=== PATIENT | male | born 1960 | race African-American/Black ===

== ENCOUNTER 2017-05-07 15:31 | Inpatient (IN) | payer OTHER ==
[2017-05-07 20:42] VITALS: BMI 19.4
[2017-05-07] MEDS ORDERED: P-EPHED 60MG/TRIPROLIDI 2.5MG TABLET PO PRN (21:11)
[2017-05-07] MEDS ORDERED: ACETAMINOPHEN 325 MG TABLET (FP) PO PRN (21:11)
[2017-05-07] MEDS ORDERED: MAGNESIUM HYDROX 2400MG/30ML ORAL SUSPENSION 30 ML CUP PO PRN (21:11)
[2017-05-07] MEDS ORDERED: MENTHOL/PHENOL 1 EACH UD MM PRN (21:11)
[2017-05-07] MEDS ORDERED: diphenhydrAMINE HCL 50 MG CAPSULE PO PRN (21:11)
[2017-05-07] MEDS ORDERED: guaiFENesin/D-METHORPHAN HB 10 ML UNIT-DOSE CUPS PO PRN (21:11)
[2017-05-07] MEDS ORDERED: MAG HYDROX/AL HYDROX/SIMETH 30 ML UNIT-DOSE CUP PO PRN (21:11)
[2017-05-07] MEDS ORDERED: MAGNESIUM CITRATE 300 ML BOTTLE PO PRN (21:11)
[2017-05-07] MEDS ORDERED: diazePAM 5 MG TABLET PO PRN (21:11)
[2017-05-07] MEDS ORDERED: LOPERAMIDE HCL 2 MG CAPSULE PO PRN (21:11)
[2017-05-07] MEDS ORDERED: METHADONE HCL 10 MG TABLET (FOR DETOX USE ONLY) PO ONE ×2 (21:11→23:00)
--- NOTE | 2017-05-07 21:11 | HP ---
COWS - Scale Resting Pulse: 0= MD 80 or Below Sweatin= Chills/Flushing Restless Observation: 3= Extraneous Movement Pupil Size: 0= Normal to Room Light Bone or Joint Aches: 2= Severe Diffuse Aches Runny Nose/ Eye Tearin= Runny Nose/Eyes GI Upset > 30mins: 3= Vomiting/Diarrhea Tremor Observation: 2= Slight Tremor Visible Yawning Observation: 0= None Anxiety or Irritability: 2=Irritable/Anxious Goose Flesh Skin: 0=Smooth Skin COWS Score: 15 Admission ROS S - HPI Chief Complaint: withdrawal sx Allergies/Adverse Reactions: Allergies Allergy/AdvReac Type Severity Reaction Status Date / Time No Known Allergies Allergy Verified 05/07/17 20:47 History of Present Illness: 56 years old male with long history of heroin dependence denies medical issue has depression is admitted to detox Exam Limitations: No Limitations - Ebola screening Have you traveled outside of the country in the last 21 days: No Have you had contact with anyone from an Ebola affected area: No Have you been sick,other than usual withdrawal symptoms: No Do you have a fever: No - Review of Systems Constitutional: Loss of Appetite, Changes in sleep, Unintentional Wgt. Loss, Unexplained wgt Loss EENT: reports: No Symptoms Reported Respiratory: reports: No Symptoms reported Cardiac: reports: No Symptoms Reported GI: reports: Nausea, Poor Appetite, Poor Fluid Intake, Abdominal cramping : reports: No Symptoms Reported Musculoskeletal: reports: Back Pain, Joint Pain, Muscle Pain, Neck Pain Integumentary: reports: Bruising (right and left arms from [facility] er 05/06 discharged 05/07/17) Neuro: reports: Tremors Endocrine: reports: No Symptoms Reported Hematology: reports: No Symptoms Reported Psychiatric: reports: Judgement Intact, Orientated x3, Anxious, Depressed Other Systems: Reviewed and Negative Patient History - Patient Medical History Hx Anemia: No Hx Asthma: No Hx Chronic Obstructive Pulmonary Disease (COPD): No Hx Cancer: No Hx Cardiac Disorders: No Hx Congestive Heart Failure: No Hx Hypertension: No Hx Hypercholesterolemia: No Hx Pacemaker: No HX Cerebrovascular Accident: No Hx Seizures: No Hx Dementia: No Hx Diabetes: No Hx Gastrointestinal Disorders: No Hx Liver Disease: No Hx Genitourinary Disorders: No Hx Sexually Transmitted Disorders: No Hx Renal Disease (ESRD): No Hx Thyroid Disease: No Hx Human Immunodeficiency Virus (HIV): No Hx Hepatitis C: No Hx Depression: Yes Hx Suicide Attempt: No Hx Bipolar Disorder: No Hx Schizophrenia: No - Patient Surgical History Past Surgical History: No - PPD History Previous Implant?: Yes Documented Results: Negative w/o proof Implanted On Prior [facility] Admission?: No PPD to be Administered?: Yes - Smoking Cessation Smoking history: Never smoked Have you smoked in the past 12 months: No Hx Chewing Tobacco Use: No Initiated information on smoking cessation: No - Substance & Tx. History Hx Alcohol Use: No Hx Substance Use: Yes Substance Use Type: Heroin Hx Substance Use Treatment: Yes (2016) - Substances Abused Heroin Route: Inhalation Frequency: Daily Amount used: 8 bags Age of first use: 13 Date of Last Use: 05/04/17 Admission Physical Exam BHS - Vital Signs Vital Signs: Vital Signs - 24 hr 05/07/17 20:40 Temperature 98.5 F Pulse Rate 60 Respiratory 18 Rate Blood Pressure 150/80 - Physical General Appearance: Yes: Appropriately Dressed, Moderate Distress, Thin, Tremorous, Irritable, Sweating, Anxious HEENTM: Yes: Hearing grossly Normal, Normal ENT Inspection, Normocephalic, Normal Voice Respiratory: Yes: Chest Non-Tender, Lungs Clear, Normal Breath Sounds, No Respiratory Distress, No Accessory Muscle Use Neck: Yes: Supple, Trachea in good position Breast: Yes: Breasts Symetrical Cardiology: Yes: Regular Rhythm, S1, S2, Bradycardia Abdominal: Yes: Non Tender, Soft, Increased Bowel Sounds Genitourinary: Yes: Within Normal Limits Back: Yes: Normal Inspection Musculoskeletal: Yes: full range of Motion, Gait Steady, Back pain, Muscle Pain , Muscle weakness (general body weakness from heroin withdrawal) Extremities: Yes: Normal Inspection, Normal Range of Motion, Non-Tender, Tremors Neurological: Yes: Fully Oriented, Alert, Motor Strength 5/5, Normal Mood/Affect , Normal Response, Depressed Affect Integumentary: Yes: Warm Lymphatic: Yes: Within Normal Limits - Diagnostic (1) Opioid dependence with withdrawal Current Visit: Yes Status: Acute (2) Weight loss Current Visit: Yes Status: Acute (3) GERD (gastroesophageal reflux disease) Current Visit: Yes Status: Chronic Qualifiers: Esophagitis presence: without esophagitis Qualified Code(s): K21.9 - Gastro-esophageal reflux disease without esophagitis; K21.9 - Gastro- esophageal reflux disease without esophagitis; K21.9 - Gastro-esophageal reflux disease without esophagitis (4) Depression (emotion) Current Visit: Yes Status: Suspected Qualifiers: Depression Type: dysthymia Qualified Code(s): F34.1 - Dysthymic disorder; F34.1 - Dysthymic disorder; F34.1 - Dysthymic disorder Cleared for Admission [facility] - Detox or Rehab [facility] Level of Care: Medically Managed Detox Regimen/Protocol: Methadone [facility] Breath Alcohol Content Breath Alcohol Content: 0 Urine Drug Screen - Results Drug Screen Negative: No Urine Drug Screen Results: OPI-Opiates, MTD-Methadone
[2017-05-07] MEDS ORDERED: ONDANSETRON *ODT* 4 MG TABLET SL ONE (21:20)
[2017-05-07] MEDS ORDERED: RANITIDINE HCL 150 MG TABLET (FP) PO ONE (21:21)
[2017-05-07] MEDS ORDERED: THIAMINE HCL 100 MG TABLET (FP) PO SCH (22:00)
[2017-05-08] LABS: URINE APPEARANCE CLEAR; URINE BILIRUBIN NEGATIVE (NEGATIVE); URINE BLOOD 1+ (NEGATIVE); URINE COLOR DKYELLOW; URINE GLUCOSE (UA) NEGATIVE (NEGATIVE); URINE KETONE TRACE (NEGATIVE); URINE NITRITE NEGATIVE (NEGATIVE); URINE UROBILINOGEN 4.0 E.U/dl mg/dL (0.2-1.0)
[2017-05-08 00:23] LABS: URINE PROTEIN 1+ (NEGATIVE)
[2017-05-08 00:31] LABS: URINE BACTERIA RARE /hpf (NONE SEEN); URINE MUCUS RARE; URINE RBC 5 /hpf (0-3); URINE WBC 1 /hpf (3-5)
[2017-05-08] MEDS ORDERED: ONDANSETRON *ODT* 4 MG TABLET SL PRN (09:57)
[2017-05-08] MEDS ORDERED: PRENATAL VITAMINS W/ FOLIC ACID TABLET (FP) PO SCH (10:00)
[2017-05-08] MEDS ORDERED: RANITIDINE HCL 150 MG TABLET (FP) PO SCH (10:00)
[2017-05-08] MEDS ORDERED: METHADONE HCL 10 MG TABLET (FOR DETOX USE ONLY) PO ONE (10:00)
[2017-05-08 10:27] LABS: MCHC 32.8 g/dl (32.0-35.9); MEAN CELL VOLUME 94.5 fl (80-96); MEAN PLT VOLUME 8.6 fl (7.5-11.1); PLATELET COUNT 282 K/MM3 (134-434); RDW 13.7 % (11.9-15.9); WHITE BLOOD COUNT 12.2 K/mm3 (4.0-10.0)
[2017-05-08 10:45] VITALS: BP 148/76; PULSE 51; TEMP 97.5
[2017-05-08] MEDS ORDERED: ONDANSETRON *ODT* 4 MG TABLET SL ONE (10:45)
--- NOTE | 2017-05-08 10:48 | PN ---
BHS COWS - Scale Resting Pulse: 0= OK 80 or Below Sweatin=Flushed/Facial Moisture Restless Observation: 1= Difficult to Sit Still Pupil Size: 0= Normal to Room Light Bone or Joint Aches: 1= Mild Discomfort Runny Nose/ Eye Tearin= Runny Nose/Eyes GI Upset > 30mins: 2= Nausea/Diarrhea Tremor Observation of Outstretched Hands: 2= Slight Tremor Visible Yawning Observation: 1= 1-2x During Session Anxiety or Irritability: 2=Irritable/Anxious Goose Flesh Skin: 0=Smooth Skin COWS Score: 13 BHS Progress Note (SOAP) Subjective: Sweating,nausea,anxiety,interrupted sleep,restless. Pt. denies chest pain. Objective: 05/08/17 10:44 Vital Signs - 8 hr 05/08/17 05/08/17 03:30 06:00 Temperature 97.9 F Pulse Rate 50 L Respiratory 18 18 Rate Blood Pressure 151/79 Laboratory Tests 05/07/17 05/08/17 23:20 08:00 WBC 12.2 H RBC 5.39 Hgb 16.7 Hct 50.9 H MCV 94.5 MCH 31.0 MCHC 32.8 RDW 13.7 Plt Count 282 MPV 8.6 Urine Color Dkyellow Urine Appearance Clear Urine pH 6.0 Urine Protein 1+ H Urine Glucose (UA) Negative Urine Ketones Trace H Urine Blood 1+ H Urine Nitrite Negative Urine Bilirubin Negative Urine Urobilinogen 4.0 e.u/dl Urine RBC 5 Urine WBC 1 Ur Epithelial Cells Rare Urine Bacteria Rare Urine Mucus Rare WBC 12.2, u/a noted. EKG = Bifascicular block with T-wave abnormality Assessment: 05/08/17 10:46 Withdrawal sx. Bifascicular block Plan: Cardiac enzymes repeat EKG in AM
[2017-05-08 11:55] LABS: ALBUMIN 3.5 g/dl (3.4-5.0); ANION GAP 11 (8-16); BILIRUBIN,TOTAL 0.9 mg/dL (0.2-1.0); CALCIUM 9.6 mg/dL (8.5-10.1); CO2 27 mmol/L (21-32); CREATININE 0.8 mg/dL (0.7-1.3); GLUCOSE,RANDOM 102 mg/dL (74-106); SGOT/AST 85 U/L (15-37); SGPT/ALT 36 U/L (12-78); TOT PROT 7.4 g/dl (6.4-8.2)
[2017-05-08 12:07] LABS: ALK PHOS 122 U/L (45-117); TROPONIN I 0.03 ng/ml (0.00-0.05)
[2017-05-08 12:08] LABS: CPK 2235 IU/L (39-308)
[2017-05-08 12:21] LABS: URINE LEUK ESTERASE Negative (NEGATIVE)
--- NOTE | 2017-05-08 13:47 | PN ---
[facility] Progress Note Note: labs reviewed CMP Sodium 137 mmol/L (136-145) 05/08/17 08:30 Potassium 4.1 mmol/L (3.5-5.1) 05/08/17 08:30 Chloride 99 mmol/L (98-107) 05/08/17 08:30 Carbon Dioxide 27 mmol/L (21-32) 05/08/17 08:30 Anion Gap 11 (8-16) 05/08/17 08:30 BUN 16 mg/dL (7-18) 05/08/17 08:30 Creatinine 0.8 mg/dL (0.7-1.3) 05/08/17 08:30 Creat Clearance w eGFR > 60 (>60) 05/08/17 08:30 Random Glucose 102 mg/dL (74-106) 05/08/17 08:30 Calcium 9.6 mg/dL (8.5-10.1) 05/08/17 08:30 Total Bilirubin 0.9 mg/dL (0.2-1.0) 05/08/17 08:30 AST 85 U/L (15-37) H 05/08/17 08:30 ALT 36 U/L (12-78) 05/08/17 08:30 Alkaline Phosphatase 122 U/L (45-117) H 05/08/17 08:30 Creatine Kinase 2235 IU/L (39-308) H 05/08/17 08:30 Creatine Kinase Index 0.3 % (0.0-5.0) 05/08/17 08:30 CK-MB (CK-2) 7.049 ng/mL (0.5-3.6) H 05/08/17 08:30 Troponin I 0.03 ng/ml (0.00-0.05) 05/08/17 08:30 Total Protein 7.4 g/dl (6.4-8.2) 05/08/17 08:30 Albumin 3.5 g/dl (3.4-5.0) 05/08/17 08:30 repeat CPK & troponin should be repeated 8 hrs from the first one and cardiac technician is needed because of bifascicular block. Transfer to ED, report given to Dr. Delgado
--- NOTE | 2017-05-08 16:04 | CONSULT ---
[facility] Psychiatric Consult - Data Date of interview: 05/08/17 Admission source: [facility] Identifying data: Not found.Patient is transferred to [facility] as per staff 's report.
--- NOTE | 2017-05-08 19:42 | EKG ---
Test Reason : Blood Pressure : / mmHG Vent. Rate : 049 BPM Atrial Rate : 049 BPM P-R Int : 138 ms QRS Dur : 144 ms QT Int : 562 ms P-R-T Axes : 077 -79 255 degrees QTc Int : 507 ms SINUS BRADYCARDIA BIATRIAL ENLARGEMENT RIGHT BUNDLE BRANCH BLOCK LEFT ANTERIOR FASCICULAR BLOCK BIFASCICULAR BLOCK MARKED T-WAVE ABNORMALITY, CONSIDER INFEROLATERAL ISCHEMIA ABNORMAL ECG WHEN COMPARED WITH ECG OF 07-MAY-2017 22:11, PREMATURE VENTRICULAR COMPLEXES ARE NO LONGER PRESENT SINUS RHYTHM IS NO LONGER WITH VENTRICULAR ESCAPE COMPLEXES T WAVE INVERSION MORE EVIDENT IN LATERAL LEADS QT HAS LENGTHENED CLINICAL CORRELATION IS RECOMMENDED AND REPEAT EKG INDICATED Confirmed by MADELYN HOWARD MD ([id number]) on 05/08/2017 7:41:52 PM Referred By: ALEJANDRA MCLEAN Confirmed By:MADELYN HOWARD MD
--- NOTE | 2017-05-08 19:50 | EKG ---
Test Reason : Blood Pressure : / mmHG Vent. Rate : 051 BPM Atrial Rate : 051 BPM P-R Int : 142 ms QRS Dur : 148 ms QT Int : 482 ms P-R-T Axes : 077 -78 -68 degrees QTc Int : 444 ms SINUS BRADYCARDIA WITH OCCASIONAL PREMATURE VENTRICULAR COMPLEXES WITH VENTRICULAR ESCAPE COMPLEXES POSSIBLE LEFT ATRIAL ENLARGEMENT SINUS BRADYCARDIA (RBBB AND LEFT ANTERIOR FASCICULAR BLOCK) ST-T ABNORMALITIES SMALL Q WAVE IN V2 CANNOT RULE OUT AN ANTEROSEPTAL DE OF INDETERMINATE AGE ABNORMAL ECG NO PREVIOUS ECGS AVAILABLE CLINICAL CORRELATION IS RECOMMENDED AND FOLLOW UP EKG RECOMMENDED Confirmed by MADELYN HOWARD MD ([id number]) on 05/08/2017 7:49:40 PM Referred By: ALEJANDRA MCLEAN Confirmed By:MADELYN HOWARD MD
--- NOTE | 2017-05-08 19:53 | HP ---
CHIEF COMPLAINT: sent from [facility] PCP: n/a HISTORY OF PRESENT ILLNESS: This is 56 year old male with a history of heroin abuse sent over form [facility] due to balaji changes and elevated CK. EKG showing sinus bradycardia with underlying RBBB, and T wave inversions inferior and laterally which appear unchanged from his previous EKG. CK 2235 on admission. Patient denies chest pain , shortness of breath, SAENZ, n, v, fever, chills, cough , abdominal or muscle pain. HE denies any trauma. His last heroin use was two days ago. He is on methadone taper. Recent Travel: no PAST MEDICAL HISTORY: PAST SURGICAL HISTORY: Social History: Smoking:no Alcohol:no Drugs: current heroin addict Family History: Allergies No Known Allergies Allergy (Verified 05/08/17 16:11) HOME MEDICATIONS: Home Medications Medication Instructions Recorded Acetaminophen [Tylenol] 650 mg PO PRN PRN 05/08/17 Diazepam [Valium] 10 mg PO PRN PRN 05/08/17 Diphenhydramine [Benadryl -] 50 mg PO PRN PRN 05/08/17 Guaifenesin Dm [Robitussin Dm] 10 ml PO PRN PRN 05/08/17 Loperamide HCl [Imodium -] 4 mg PO PRN PRN 05/08/17 Mag Hydrox/Al Hydrox/Simeth 30 ml PO PRN PRN 05/08/17 [Mylanta *Suspension*] Magnesium Citrate [Citroma] 300 ml PO PRN PRN 05/08/17 Magnesium Hydrox 2400MG/30Ml [Milk 30 ml PO PRN PRN 05/08/17 of Magnesia -] Menthol/Phenol [Cepastat Lozenge -] 1 each MM PRN PRN 05/08/17 Methadone (Detox) [Dolophine -] 0 mg PO DAILY 05/08/17 Ondansetron [Zofran Odt -] 8 mg SL PRN PRN 05/08/17 P-Ephed 60Mg/Triprolidi 2.5MG 1 combo PO PRN PRN 05/08/17 [Actifed -] Vit Calc,Iron,Folic 1 each PO DAILY 05/08/17 [ Vitamins] Ranitidine HCl [Zantac] 150 mg PO BID 05/08/17 Thiamine HCl [Vitamin B1] 100 mg PO HS 05/08/17 REVIEW OF SYSTEMS CONSTITUTIONAL: Positive: weakness, Absent: fever, chills, diaphoresis, malaise, loss of appetite, weight change HEENT: Absent: rhinorrhea, nasal congestion, throat pain, throat swelling, difficulty swallowing, mouth swelling, ear pain, eye pain, visual changes CARDIOVASCULAR: Absent: chest pain, syncope, palpitations, irregular heart rate, lightheadedness , peripheral edema RESPIRATORY: Absent: cough, shortness of breath, dyspnea with exertion, orthopnea, wheezing, stridor, hemoptysis GASTROINTESTINAL: Absent: abdominal pain, abdominal distension, nausea, vomiting, diarrhea, constipation, melena, hematochezia GENITOURINARY: Absent: dysuria, frequency, urgency, hesitancy, hematuria, flank pain, genital pain MUSCULOSKELETAL: Absent: myalgia, arthralgia, joint swelling, back pain, neck pain SKIN: Absent: rash, itching, pallor HEMATOLOGIC/IMMUNOLOGIC: Absent: easy bleeding, easy bruising, lymphadenopathy, frequent infections ENDOCRINE: Absent: unexplained weight gain, unexplained weight loss, heat intolerance, cold intolerance NEUROLOGIC: Absent: headache, focal weakness or paresthesias, dizziness, unsteady gait, seizure, mental status changes, bladder or bowel incontinence PSYCHIATRIC: Absent: anxiety, depression, suicidal or homicidal ideation, hallucinations. PHYSICAL EXAMINATION Vital Signs - 24 hr 05/07/17 05/07/17 05/08/17 20:40 23:01 00:56 Temperature 98.5 F 98.1 F Pulse Rate 60 66 Respiratory 18 20 16 Rate Blood Pressure 150/80 152/74 05/08/17 05/08/17 05/08/17 03:30 06:00 10:00 Temperature 97.9 F 97.5 F L Pulse Rate 50 L 51 L Respiratory 18 18 16 Rate Blood Pressure 151/79 148/76 GENERAL: Awake, alert, and fully oriented, in no acute distress. HEAD: Normal with no signs of trauma. EYES: Pupils equal, round and reactive to light, extraocular movements intact, sclera anicteric, conjunctiva clear. No lid lag. EARS, NOSE, THROAT: Ears normal, nares patent, oropharynx clear without exudates. Moist mucous membranes. NECK: Normal range of motion, supple without lymphadenopathy, JVD, or masses. LUNGS: Breath sounds equal, clear to auscultation bilaterally. No wheezes, and no crackles. No accessory muscle use. HEART: Regular rate and rhythm, normal S1 and S2 without murmur, rub or gallop. ABDOMEN: Soft, nontender, not distended, normoactive bowel sounds, no guarding, no rebound, no masses. No hepatomegaly or splenomegaly. MUSCULOSKELETAL: Normal range of motion at all joints. No bony deformities or tenderness. No CVA tenderness. UPPER EXTREMITIES: 2+ pulses, warm, well-perfused. No cyanosis. No clubbing. No peripheral edema. LOWER EXTREMITIES: 2+ pulses, warm, well-perfused. No calf tenderness. No peripheral edema. NEUROLOGICAL: Cranial nerves II-XII intact. Normal speech. Normal gait. PSYCHIATRIC: Cooperative. Good eye contact. Appropriate mood and affect. SKIN: Warm, dry, normal turgor, no rashes or lesions noted, normal capillary refill. Laboratory Results - last 24 hr 05/07/17 05/08/17 05/08/17 23:20 08:00 08:00 WBC 12.2 H RBC 5.39 Hgb 16.7 Hct 50.9 H MCV 94.5 MCH 31.0 MCHC 32.8 RDW 13.7 Plt Count 282 MPV 8.6 Sodium Potassium Chloride Carbon Dioxide Anion Gap BUN Creatinine Creat Clearance w eGFR Random Glucose Calcium Total Bilirubin AST ALT Alkaline Phosphatase Creatine Kinase Creatine Kinase Index CK-MB (CK-2) Troponin I Total Protein Albumin Urine Color Dkyellow Urine Appearance Clear Urine pH 6.0 Ur Specific [place] 1.025 Urine Protein 1+ H Urine Glucose (UA) Negative Urine Ketones Trace H Urine Blood 1+ H Urine Nitrite Negative Urine Bilirubin Negative Urine Urobilinogen 4.0 e.u/dl Ur Leukocyte Esterase Negative Urine RBC 5 Urine WBC 1 Ur Epithelial Cells Rare Urine Bacteria Rare Urine Mucus Rare RPR Titer Nonreactive 05/08/17 08:30 WBC RBC Hgb Hct MCV MCH MCHC RDW Plt Count MPV Sodium 137 Potassium 4.1 Chloride 99 Carbon Dioxide 27 Anion Gap 11 BUN 16 Creatinine 0.8 Creat Clearance w eGFR > 60 Random Glucose 102 Calcium 9.6 Total Bilirubin 0.9 AST 85 H ALT 36 Alkaline Phosphatase 122 H Creatine Kinase 2235 H Creatine Kinase Index 0.3 CK-MB (CK-2) 7.049 H Troponin I 0.03 Total Protein 7.4 Albumin 3.5 Urine Color Urine Appearance Urine pH Ur Specific [place] Urine Protein Urine Glucose (UA) Urine Ketones Urine Blood Urine Nitrite Urine Bilirubin Urine Urobilinogen Ur Leukocyte Esterase Urine RBC Urine WBC Ur Epithelial Cells Urine Bacteria Urine Mucus RPR Titer ASSESSMENT/PLAN: This is a 56
[2017-05-08] MEDS ORDERED: SODIUM CHLORIDE 1,000 ML IV SCH (20:00)
[2017-05-09] MEDS ORDERED: METHADONE HCL 5 MG TABLET (FOR DETOX USE ONLY) PO ONE (10:00)
[2017-05-10] MEDS ORDERED: METHADONE HCL 5 MG TABLET (FOR DETOX USE ONLY) PO ONE (10:00)
[2017-05-11] MEDS ORDERED: METHADONE HCL 10 MG TABLET (FOR DETOX USE ONLY) PO ONE (10:00)
[2017-05-12] MEDS ORDERED: METHADONE HCL 5 MG TABLET (FOR DETOX USE ONLY) PO ONE (06:00)
--- NOTE | 2017-05-31 14:59 | DS ---
[facility] Detox Discharge Summary Admission Date: 05/07/17 Discharge Date: 05/08/17 - History Present History: Opioid Dependence Additional Comments: patient admitted to [facility] with rhabdo mylosisi for hydration Pertinent Past History: GERD, wt loss, anxiety, depression, insomnia, rhabdo mylosis - Physical Exam Results Vital Signs: Vital Signs Temperature 97.5 F L 05/08/17 10:00 Pulse Rate 51 L 05/08/17 10:00 Respiratory Rate 16 05/08/17 10:00 Blood Pressure 148/76 05/08/17 10:00 O2 Sat by Pulse Oximetry (%) Pertinent Admission Physical Exam Findings: withdrawal sx - Treatment Hospital Course: Detox Protocol Followed - Medication Discharge Medications: Ambulatory Orders Acetaminophen [Tylenol] 650 mg PO PRN PRN 05/08/17 Diphenhydramine [Benadryl Capsule -] 50 mg PO PRN PRN 05/08/17 Guaifenesin Dm [Robitussin Dm -] 10 ml PO PRN PRN 05/08/17 Loperamide HCl [Imodium -] 4 mg PO PRN PRN 05/08/17 Mag Hydrox/Al Hydrox/Simeth [Mylanta Oral Suspension -] 30 ml PO PRN PRN Magnesium Citrate [Citroma -] 300 ml PO PRN PRN 05/08/17 Menthol/Phenol [Cepastat Lozenge -] 1 each MM PRN PRN 05/08/17 Ondansetron [Zofran Odt -] 8 mg SL PRN PRN 05/08/17 P-Ephed 60Mg/Triprolidi 2.5MG [Actifed -] 1 combo PO PRN PRN 05/08/17 Ranitidine HCl [Zantac] 150 mg PO BID 05/08/17 Thiamine HCl [Vitamin B1] 100 mg PO HS 05/08/17 Aspirin Coated [Ecotrin -] 81 mg PO DAILY tab 05/13/17 Atorvastatin Ca [Lipitor] 10 mg PO HS #30 tablet 05/13/17 Diazepam [Valium] 10 mg PO HS PRN #0 tab 05/13/17 Folic Acid - 1 mg PO DAILY #30 tablet 05/13/17 Gabapentin [Neurontin -] 200 mg PO TID #90 tab 05/13/17 - Diagnosis (1) Opioid dependence with withdrawal Status: Acute (2) Rhabdomyolysis Status: Acute Qualifiers: Rhabdomyolysis type: non-traumatic Qualified Code(s): M62.82 - Rhabdomyolysis; M62.82 - Rhabdomyolysis (3) Weight loss Status: Acute (4) GERD (gastroesophageal reflux disease) Status: Chronic Qualifiers: Esophagitis presence: without esophagitis Qualified Code(s): K21.9 - Gastro-esophageal reflux disease without esophagitis; K21.9 - Gastro- esophageal reflux disease without esophagitis; K21.9 - Gastro-esophageal reflux disease without esophagitis (5) Depression (emotion) Status: Suspected Qualifiers: Depression Type: dysthymia Qualified Code(s): F34.1 - Dysthymic disorder; F34.1 - Dysthymic disorder; F34.1 - Dysthymic disorder - AMA Did Patient Leave Against Medical Advice: No
== END 2017-05-08 23:15 | disposition short-term general hospital (02) | DRG 773 ==
LOC: YASAS 15:31 → Y6N 20:41
PROVIDERS: ADMIT Internal Medicine; ATTEND Internal Medicine
PROC: HZ2ZZZZ Detoxification Services for Substance Abuse Treatment (ICD-10-PCS; principal; 2017-05-07)
DX: F11.23 Opioid dependence with withdrawal (principal); F34.1 Dysthymic disorder; K21.9 Gastro-esophageal reflux disease without esophagitis; I45.2 Bifascicular block; R00.1 Bradycardia, unspecified; Z87.898 Personal history of other specified conditions
CPT/HCPCS: 36415; 80053; 81003; 81015; 82553; 84484; 85027; 86593; 86803; 93005; 93010

== ENCOUNTER 2017-05-08 16:08 | Inpatient (IN) | payer OTHER ==
--- NOTE | 2017-05-08 16:24 | PDOC ---
History of Present Illness - General Chief Complaint: Revisit,Radiology Variance Stated Complaint: ABNORMAL EKG Time Seen by Provider: 05/08/17 16:24 - History of Present Illness Initial Comments: 05/08/17 19:01 Mr. Millan is a 56 year old male with a significant past medical history of heroin abuse who presents to the emergency department with EKG changes noted at [facility] where he is admitted for detox. He currently has no complaints. The patient denies chest pain, shortness of breath, headache and dizziness. Denies fever, chills, nausea, vomit, diarrhea and constipation. Denies dysuria, frequency, urgency and hematuria. Allergies: NKDA Past surgical history: Denies Social history: Uses Heroin Past History - Past Medical History Allergies/Adverse Reactions: Allergies Allergy/AdvReac Type Severity Reaction Status Date / Time No Known Allergies Allergy Verified 05/08/17 16:11 Home Medications: Ambulatory Orders Acetaminophen [Tylenol] 650 mg PO PRN PRN 05/08/17 Diazepam [Valium] 10 mg PO PRN PRN 05/08/17 Diphenhydramine [Benadryl -] 50 mg PO PRN PRN 05/08/17 Guaifenesin Dm [Robitussin Dm] 10 ml PO PRN PRN 05/08/17 Loperamide HCl [Imodium -] 4 mg PO PRN PRN 05/08/17 Mag Hydrox/Al Hydrox/Simeth [Mylanta *Suspension*] 30 ml PO PRN PRN 05/08/17 Magnesium Citrate [Citroma] 300 ml PO PRN PRN 05/08/17 Magnesium Hydrox 2400MG/30Ml [Milk of Magnesia -] 30 ml PO PRN PRN 05/08/17 Menthol/Phenol [Cepastat Lozenge -] 1 each MM PRN PRN 05/08/17 Methadone (Detox) [Dolophine -] 0 mg PO DAILY 05/08/17 Ondansetron [Zofran Odt -] 8 mg SL PRN PRN 05/08/17 P-Ephed 60Mg/Triprolidi 2.5MG [Actifed -] 1 combo PO PRN PRN 05/08/17 Vit Calc,Iron,Folic [ Vitamins] 1 each PO DAILY 05/08/17 Ranitidine HCl [Zantac] 150 mg PO BID 05/08/17 Thiamine HCl [Vitamin B1] 100 mg PO HS 05/08/17 Anemia: No Asthma: No Cancer: No Cardiac Disorders: No CVA: No COPD: No CHF: No Dementia: No Diabetes: No GI Disorders: No Disorders: No HTN: No Hypercholesterolemia: No Kidney Stones: No Liver Disease: No Seizures: No Thyroid Disease: No - Surgical History Abdominal Surgery: No Appendectomy: No Cardiac Surgery: No Cholecystectomy: No Lung Surgery: No Neurologic Surgery: No Orthopedic Surgery: No - Reproductive History Testicular Surgery: No - Suicide/Smoking/Psychosocial Hx Smoking History: Never smoked Have you smoked in the past 12 months: No Hx Alcohol Use: No Drug/Substance Use Hx: Yes Substance Use Type: Heroin Hx Substance Use Treatment: Yes (2016) Review of Systems - Review of Systems Comments:: 05/08/17 19:01 GENERAL/CONSTITUTIONAL: No fever or chills. No weakness. HEAD, EYES, EARS, NOSE AND THROAT: No change in vision. No ear pain or discharge. No sore throat. CARDIOVASCULAR: No chest pain or shortness of breath RESPIRATORY: No cough, wheezing, or hemoptysis. GASTROINTESTINAL: No nausea, vomiting, diarrhea or constipation. GENITOURINARY: No dysuria, frequency, or change in urination. MUSCULOSKELETAL: No joint or muscle swelling or pain. No neck or back pain. SKIN: No rash NEUROLOGIC: No headache, vertigo, loss of consciousness, or change in strength/ sensation. ENDOCRINE: No increased thirst. No abnormal weight change HEMATOLOGIC/LYMPHATIC: No anemia, easy bleeding, or history of blood clots. ALLERGIC/IMMUNOLOGIC: No hives or skin allergy. *Physical Exam - Physical Exam Comments: 05/08/17 19:00 GENERAL: Awake, alert, and fully oriented, in no acute distress HEAD: No signs of trauma, normocephalic, atraumatic EYES: Pupils constricted, EOMI, sclera anicteric, conjunctiva clear ENT: Auricles normal inspection, hearing grossly normal, nares patent, oropharynx clear without exudates. Moist mucosa NECK: Normal ROM, supple, no lymphadenopathy, JVD, or masses LUNGS: No distress, speaks full sentences, clear to auscultation bilaterally HEART: Regular rate and rhythm, normal S1 and S2, no murmurs, rubs or gallops, peripheral pulses normal and equal bilaterally. ABDOMEN: Soft, nontender, normoactive bowel sounds. No guarding, no rebound. No masses EXTREMITIES: Normal inspection, Normal range of motion, no edema. No clubbing or cyanosis. NEUROLOGICAL: Cranial nerves II through XII grossly intact. Normal speech, normal gait, no focal sensorimotor deficits SKIN: Warm, Dry, normal turgor, no rashes or lesions noted. ED Treatment Course - LABORATORY CBC & Chemistry Diagram: 05/08/17 16:33 05/08/17 16:33 Medical Decision Making - Medical Decision Making 05/08/17 19:05 Patient currently on methadone for heroin detox. Has no complaints and thinks his heart has "always been like that." Currently resting comfortably in bed. Troponin less than 0.02, CK-MB 4.55 and creatine kinase 1948 decreased from earlier 7.049 and 2235. Urine positive for methadone and benzodiazepines as expected with treatment at center. EKG unchanged, serial troponins negative. Administering fluids for renal protection. Laboratory Results - last 24 hr 05/08/17 05/08/17 05/08/17 16:33 16:33 16:40 WBC 11.2 H RBC 4.95 Hgb 15.4 Hct 46.8 MCV 94.6 MCH 31.1 MCHC 32.9 RDW 13.7 Plt Count 241 MPV 8.1 Neutrophils % 79.6 Lymphocytes % 8.4 Monocytes % 11.0 H Eosinophils % 0.8 Basophils % 0.2 Sodium 135 L Potassium 4.2 Chloride 97 L Carbon Dioxide 28 Anion Gap 10 BUN 15 Creatinine 0.8 Creat Clearance w eGFR > 60 Random Glucose 99 Calcium 8.8 Total Bilirubin 0.8 AST 75 H ALT 33 Alkaline Phosphatase 102 Creatine Kinase 1948 H Creatine Kinase Index 0.2 CK-MB (CK-2) 4.55 H Troponin I 0.02 D Total Protein 6.3 L Albumin 3.0 L Opiates Screen Methadone Screen Barbiturate Screen Phencyclidine Screen Ur Amphetamines Screen MDMA (Ecstasy) Screen Benzodiazepines Screen Cocaine Screen U Marijuana (THC) Screen 05/08/17 16:53 WBC RBC Hgb Hct MCV MCH MCHC RDW Plt Count MPV Neutrophils % Lymphocytes % Monocytes % Eosinophils % Basophils % Sodium Potassium Chloride Carbon Dioxide Anion Gap BUN Creatinine Creat Clearance w eGFR Random Glucose Calcium Total Bilirubin AST ALT Alkaline Phosphatase Creatine Kinase Creatine Kinase Index CK-MB (CK-2) Troponin I Total Protein Albumin Opiates Screen Negative Methadone Screen Positive Barbiturate Screen Negative Phencyclidine Screen Negative Ur Amphetamines Screen Negative MDMA (Ecstasy) Screen Negative Benzodiazepines Screen Positive Cocaine Screen Negative U Marijuana (THC) Screen Negative *DC/Admit/Observation/Transfer Diagnosis at time of Disposition: Rhabdomyolysis Qualifiers: Rhabdomyolysis type: non-traumatic Qualified Code(s): M62.82 - Rhabdomyolysis - Discharge Dispostion Admit: Yes
[2017-05-08] MEDS ORDERED: SODIUM CHLORIDE 1,000 ML IV STA ×2 (16:51→19:12)
[2017-05-08 17:07] LABS: BASOPHIL 0.2 % (0-2.0); EOSINOPHIL 0.8 % (0-4.5); MCH 31.1 pg (25.7-33.7); MCHC 32.9 g/dl (32.0-35.9); MEAN CELL VOLUME 94.6 fl (80-96); MEAN PLT VOLUME 8.1 fl (7.5-11.1); NEUTROPHILS 79.6 % (42.8-82.8); PLATELET COUNT 241 K/MM3 (134-434); RDW 13.7 % (11.9-15.9); WHITE BLOOD COUNT 11.2 K/mm3 (4.0-10.0)
[2017-05-08 17:34] LABS: ALK PHOS 102 U/L (45-117); ANION GAP 10 (8-16); BILIRUBIN,TOTAL 0.8 mg/dL (0.2-1.0); CALCIUM 8.8 mg/dL (8.5-10.1); CO2 28 mmol/L (21-32); CREATININE 0.8 mg/dL (0.7-1.3); GLUCOSE,RANDOM 99 mg/dL (74-106); SGPT/ALT 33 U/L (12-78); TOT PROT 6.3 g/dl (6.4-8.2)
[2017-05-08 17:35] LABS: SGOT/AST 75 U/L (15-37)
--- NOTE | 2017-05-08 18:40 | PDOC ---
Attending Attestation - HPI HPI: 05/08/17 19:23 The patient is a 56 year old male, with a significant past medical history of heroin abuse, who presents to the emergency department from [facility] with notable EKG changes earlier today. <Parris Heath - Last Filed: 05/08/17 19:23> - Resident Resident Name: ShivamadwoaMack chinchilla - ED Attending Attestation I have performed the following: I have examined & evaluated the patient, The case was reviewed & discussed with the resident, I agree w/resident's findings & plan, Exceptions are as noted - Physicial Exam PE: 05/08/17 19:35 Patient is awake and alert, bradycardic, resting comfortably, asymptomatic in the ER. EXAMINATION CONSTITUTIONAL: Well-appearing; well-nourished; in no apparent distress HEAD: Normocephalic; atraumatic EYES: PERRL; EOM intact ENMT: External appears normal; normal oropharynx CARD: Bradycardic; Normal S1, S2; no murmurs, rubs, or gallops RESP: Normal chest excursion with respiration; breath sounds clear and equal bilaterally; no wheezes, rhonchi, or rales ABD: Soft, non-distended; non-tender; no palpable organomegaly, no palpable hernias EXT: Normal ROM in all four extremities; non-tender to palpation; distal pulses intact NEURO: No focal neurological deficiencies. - Medical Decision Making 05/08/17 19:36 56-year-old male with history of heroin abuse presents to the ER with abnormal EKG and elevated CPK. Patient's EKG shows sinus bradycardia with underlying RBBB , and T wave inversions inferiorly and laterally which appear unchanged from his previous EKG. Patient denies chest pain at any point prior to admission. Patient's initial cardiac enzymes showed a normal troponin but an elevated CPK consistent with rhabdomyolysis. Patient received a liter of normal saline with a slight decrease in CPK. He will require placement in observation for continuous IV fluid hydration and serial CPK measurement for treatment of mild rhabdomyolysis. <Ty Nix - Last Filed: 05/08/17 19:37>
[2017-05-08 18:49] LABS: URINE MARIJUANA THC NEGATIVE ng/ml (CUTOFF=50)
[2017-05-08 18:55] LABS: TROPONIN I 0.02 ng/ml (0.00-0.05)
[2017-05-08 20:48] VITALS: BMI 16.4
--- NOTE | 2017-05-08 21:57 | PN ---
Teaching Attending Note Name of Resident: [place] ATTENDING PHYSICIAN STATEMENT I saw and evaluated the patient. I reviewed the resident's note and discussed the case with the resident. I agree with the resident's findings and plan as documented. SUBJECTIVE:Patient referred from [facility] for EKG changes. Review of prior EKGs no acute change. Patient denies chest pain, palpitations or SOB. OBJECTIVE: Gen: cooperative, slightly anxious HEENT: NC, AT, PERRLA, EOMI, MMM CVS: RRR, S1, S2 and gallop Lungs: CTA Abd: Soft, NT, ND, BS+ no H/Smegaly Ext: nl rom, no Edema. CBCD WBC 11.2 K/mm3 (4.0-10.0) H 05/08/17 16:33 RBC 4.95 M/mm3 (4.00-5.60) 05/08/17 16:33 Hgb 15.4 GM/dL (11.7-16.9) 05/08/17 16:33 Hct 46.8 % (35.4-49) 05/08/17 16:33 MCV 94.6 fl (80-96) 05/08/17 16:33 MCHC 32.9 g/dl (32.0-35.9) 05/08/17 16:33 RDW 13.7 % (11.9-15.9) 05/08/17 16:33 Plt Count 241 K/MM3 (134-434) 05/08/17 16:33 MPV 8.1 fl (7.5-11.1) 05/08/17 16:33 CMP Sodium 135 mmol/L (136-145) L 05/08/17 16:33 Potassium 4.2 mmol/L (3.5-5.1) 05/08/17 16:33 Chloride 97 mmol/L (98-107) L 05/08/17 16:33 Carbon Dioxide 28 mmol/L (21-32) 05/08/17 16:33 Anion Gap 10 (8-16) 05/08/17 16:33 BUN 15 mg/dL (7-18) 05/08/17 16:33 Creatinine 0.8 mg/dL (0.7-1.3) 05/08/17 16:33 Creat Clearance w eGFR > 60 (>60) 05/08/17 16:33 Random Glucose 99 mg/dL (74-106) 05/08/17 16:33 Calcium 8.8 mg/dL (8.5-10.1) 05/08/17 16:33 Total Bilirubin 0.8 mg/dL (0.2-1.0) 05/08/17 16:33 AST 75 U/L (15-37) H 05/08/17 16:33 ALT 33 U/L (12-78) 05/08/17 16:33 Alkaline Phosphatase 102 U/L (45-117) 05/08/17 16:33 Total Protein 6.3 g/dl (6.4-8.2) L 05/08/17 16:33 Albumin 3.0 g/dl (3.4-5.0) L 05/08/17 16:33 CARDIAC ENZYMES Creatine Kinase 1948 IU/L (39-308) H 05/08/17 16:40 Troponin I 0.02 ng/ml (0.00-0.05) D 05/08/17 16:40 ASSESSMENT AND PLAN: EKG unchanged from prior- Will get ECHO as there is no baseline ECHO r/o Rhabdomyolysis- IVF 150cc/h Urine for myoglobins Repeat BMP in AM Continue Rehab therapy
[2017-05-08] MEDS ORDERED: MAGNESIUM CITRATE 300 ML BOTTLE PO PRN (22:11)
[2017-05-08] MEDS ORDERED: ONDANSETRON *ODT* 4 MG TABLET SL PRN (22:11)
[2017-05-08] MEDS ORDERED: guaiFENesin/D-METHORPHAN HB 10 ML UNIT-DOSE CUPS PO PRN (22:11)
[2017-05-08] MEDS ORDERED: LOPERAMIDE HCL 2 MG CAPSULE PO PRN (22:11)
[2017-05-08] MEDS ORDERED: ACETAMINOPHEN 325 MG TABLET (FP) PO PRN (22:11)
[2017-05-08] MEDS ORDERED: P-EPHED 60MG/TRIPROLIDI 2.5MG TABLET PO PRN (22:11)
[2017-05-08] MEDS ORDERED: MAG HYDROX/AL HYDROX/SIMETH 30 ML UNIT-DOSE CUP PO PRN (22:11)
[2017-05-08] MEDS ORDERED: diazePAM 5 MG TABLET PO PRN (22:11)
[2017-05-08] MEDS ORDERED: SODIUM CHLORIDE 1,000 ML IV SCH (22:15)
--- NOTE | 2017-05-08 23:22 | HP ---
CHIEF COMPLAINT: sent from [facility] due to ekg changes PCP: n/a HISTORY OF PRESENT ILLNESS: 56 year old male, current heroin abuser was at [facility] for detox when there was changes found on ECG, show sinus bradycardia, RBBB, T wave inversion inferiorly and laterally which appear unchanged from EKG. Patient does not endorse associated symptoms including chest pain, shortness of breath, SAENZ, blurry vision, abdominal pain, changes in bowel in bladder. IN the ED Troponin x1. CPK 2235. Recent Travel: no PAST MEDICAL HISTORY: IVDA; PAST SURGICAL HISTORY: none Social History: Smoking:no Alcohol:social Drugs: IVDA last used heroin two days ago Family History: Allergies No Known Allergies Allergy (Verified 05/08/17 16:11) HOME MEDICATIONS: Home Medications Medication Instructions Recorded Acetaminophen [Tylenol] 650 mg PO PRN PRN 05/08/17 Diazepam [Valium] 10 mg PO PRN PRN 05/08/17 Diphenhydramine [Benadryl -] 50 mg PO PRN PRN 05/08/17 Guaifenesin Dm [Robitussin Dm] 10 ml PO PRN PRN 05/08/17 Loperamide HCl [Imodium -] 4 mg PO PRN PRN 05/08/17 Mag Hydrox/Al Hydrox/Simeth 30 ml PO PRN PRN 05/08/17 [Mylanta *Suspension*] Magnesium Citrate [Citroma] 300 ml PO PRN PRN 05/08/17 Magnesium Hydrox 2400MG/30Ml [Milk 30 ml PO PRN PRN 05/08/17 of Magnesia -] Menthol/Phenol [Cepastat Lozenge -] 1 each MM PRN PRN 05/08/17 Methadone (Detox) [Dolophine -] 0 mg PO DAILY 05/08/17 Methadone [Dolophine -] 20 mg PO DAILY 05/08/17 Ondansetron [Zofran Odt -] 8 mg SL PRN PRN 05/08/17 P-Ephed 60Mg/Triprolidi 2.5MG 1 combo PO PRN PRN 05/08/17 [Actifed -] Vit Calc,Iron,Folic 1 each PO DAILY 05/08/17 [ Vitamins] Ranitidine HCl [Zantac] 150 mg PO BID 05/08/17 Thiamine HCl [Vitamin B1] 100 mg PO HS 05/08/17 REVIEW OF SYSTEMS CONSTITUTIONAL: Absent: fever, chills, diaphoresis, generalized weakness, malaise, loss of appetite, weight change HEENT: Absent: rhinorrhea, nasal congestion, throat pain, throat swelling, difficulty swallowing, mouth swelling, ear pain, eye pain, visual changes CARDIOVASCULAR: Absent: chest pain, syncope, palpitations, irregular heart rate, lightheadedness , peripheral edema RESPIRATORY: Absent: cough, shortness of breath, dyspnea with exertion, orthopnea, wheezing, stridor, hemoptysis GASTROINTESTINAL: Absent: abdominal pain, abdominal distension, nausea, vomiting, diarrhea, constipation, melena, hematochezia GENITOURINARY: Absent: dysuria, frequency, urgency, hesitancy, hematuria, flank pain, genital pain MUSCULOSKELETAL: Absent: myalgia, arthralgia, joint swelling, back pain, neck pain SKIN: Absent: rash, itching, pallor HEMATOLOGIC/IMMUNOLOGIC: Absent: easy bleeding, easy bruising, lymphadenopathy, frequent infections ENDOCRINE: Absent: unexplained weight gain, unexplained weight loss, heat intolerance, cold intolerance NEUROLOGIC: Absent: headache, focal weakness or paresthesias, dizziness, unsteady gait, seizure, mental status changes, bladder or bowel incontinence PSYCHIATRIC: Absent: anxiety, depression, suicidal or homicidal ideation, hallucinations. PHYSICAL EXAMINATION Vital Signs - 24 hr 05/08/17 19:51 Temperature 98.1 F Pulse Rate [ 52 L Right Apical] Respiratory 19 Rate Blood Pressure 130/69 [Left Arm] O2 Sat by Pulse 98 Oximetry (%) GENERAL: Awake, alert, and fully oriented, laying in bed in position HEAD: Normal with no signs of trauma. EYES: Pupils equal, round and reactive to light, extraocular movements intact, sclera anicteric, conjunctiva clear. No lid lag. EARS, NOSE, THROAT: Ears normal, nares patent, oropharynx clear without exudates. dry mucous membranes. NECK: Normal range of motion, supple without lymphadenopathy, JVD, or masses. LUNGS: Breath sounds equal, clear to auscultation bilaterally. No wheezes, and no crackles. No accessory muscle use. HEART: Regular rate and rhythm, normal S1 and S2; S3 heard at apex, rub or gallop. ABDOMEN: Soft, nontender, not distended, normoactive bowel sounds, no guarding, no rebound, no masses. No hepatomegaly or splenomegaly. MUSCULOSKELETAL: Normal range of motion at all joints. No bony deformities or tenderness. No CVA tenderness. UPPER EXTREMITIES: 2+ pulses, warm, well-perfused. No cyanosis. No clubbing. No peripheral edema. LOWER EXTREMITIES: 2+ pulses, warm, well-perfused. No calf tenderness. No peripheral edema. NEUROLOGICAL: Cranial nerves II-XII intact. Normal speech. Normal gait. PSYCHIATRIC: Cooperative. Good eye contact. Appropriate mood and affect. SKIN: Warm, dry, normal turgor, no rashes or lesions noted, normal capillary refill. Current Medications Generic Name Dose Route Start Last Admin Trade Name Freq PRN Reason Stop Dose Admin Acetaminophen 650 mg 05/08/17 22:11 Tylenol - PO PRN PRN PAIN Al Hydroxide/Mg Hydroxide 30 ml 05/08/17 22:11 Mylanta Oral Suspension - PO PRN PRN DYSPEPSIA Diazepam 10 mg 05/08/17 22:11 Valium - PO PRN PRN WITHDRAWAL SYMPTOMS. Guaifenesin 10 ml 05/08/17 22:11 Robitussin Dm - PO PRN PRN COUGH Sodium Chloride 1,000 mls @ 125 mls/hr 05/08/17 22:15 05/08/17 22:55 Normal Saline - IV 125 mls/hr ASDIR ULYSSES Administration Loperamide HCl 4 mg 05/08/17 22:11 Imodium - PO PRN PRN DIARRHEA Magnesium Citrate 300 ml 05/08/17 22:11 Citroma - PO PRN PRN CONSTIPATION Methadone HCl 20 mg 05/09/17 10:00 Dolophine - PO 05/09/17 10:01 DAILY [facility] Ondansetron HCl 8 mg 05/08/17 22:11 Zofran Odt - SL PRN PRN NAUSEA Pseudoephedrine/Triprolidine 1 combo 05/08/17 22:11 Actifed - PO PRN PRN NASAL CONGESTION Ranitidine HCl 150 mg 05/09/17 10:00 Zantac - PO BID ULYSSES Thiamine HCl 100 mg 05/09/17 22:00 Vitamin B1 - PO HS [facility] CBC, BMP 05/08/17 16:33 05/08/17 16:33 ASSESSMENT/PLAN: 56 year old male, IVDA last used heroin 2 days ago, sent [facility] due to ECG changes, as per staff. Patient found to have significantly elevated CK, CKMB, neg troponin. Admit to observation for Rhabdomyolysis. #Rhabdomyolysis secondary to heroin use: -trend CPK -fluid hydration with NS -urine myoglobin pending -f/u chem, for kidney functioning #S3 murmur heard on exam: -echo in am; eval valve, wall motion, check for vegetations due to IVDA #leuckocytosis mild: -no acute signs of infection -afebrile. monitor off antibiotics -most likely acute reaction, trend cbc #elevated AST: most likely secondary to alcohol use -trend #opiod withdrawal: -on methadone taper 20mg po daily -[id number] q6h prn #GERD: -cont ranitidine 150mg po daily FEN: Fluids: Bolus NS; then cont 150mls/hr NS Electrolytes: wnl Diet: regular if tolerated Disposition: obs med surg; Problem List - Problem (1) Opioid dependence with withdrawal Code(s): F11.23 - OPIOID DEPENDENCE WITH WITHDRAWAL (2) Rhabdomyolysis Code(s): M62.82 - RHABDOMYOLYSIS Qualifiers: Rhabdomyolysis type: non-traumatic Qualified Code(s): M62.82 - Rhabdomyolysis; M62.82 - Rhabdomyolysis (3) Weight loss Code(s): R63.4 - ABNORMAL WEIGHT LOSS (4) GERD (gastroesophageal reflux disease) Code(s): K21.9 - GASTRO-ESOPHAGEAL REFLUX DISEASE WITHOUT ESOPHAGITIS Qualifiers: Esophagitis presence: without esophagitis Qualified Code(s): K21.9 - Gastro-esophageal reflux disease without esophagitis; K21.9 - Gastro- esophageal reflux disease without esophagitis; K21.9 - Gastro-esophageal reflux disease without esophagitis (5) Depression (emotion) Code(s): F32.9 - MAJOR DEPRESSIVE DISORDER, SINGLE EPISODE, UNSPECIFIED Qualifiers: Depression Type: dysthymia Qualified Code(s): F34.1 - Dysthymic disorder; F34.1 - Dysthymic disorder; F34.1 - Dysthymic disorder Visit type - Emergency Visit Emergency Visit: Yes ED Registration Date: 05/08/17 Care time: The patient presented to the Emergency Department on the above date and was hospitalized for further evaluation of their emergent condition. - New Patient This patient is new to me today: Yes Date on this admission: 05/09/17 - Critical Care Critical Care patient: No
[2017-05-08] MEDS ORDERED: diazePAM 5 MG TABLET PO ONE (23:30)
[2017-05-09] MEDS ORDERED: LOPERAMIDE HCL 2 MG CAPSULE PO PRN (04:42)
[2017-05-09] MEDS ORDERED: MAGNESIUM CITRATE 300 ML BOTTLE PO PRN (04:42)
[2017-05-09] MEDS ORDERED: P-EPHED 60MG/TRIPROLIDI 2.5MG TABLET PO PRN (04:42)
[2017-05-09] MEDS ORDERED: guaiFENesin/D-METHORPHAN HB 10 ML UNIT-DOSE CUPS PO PRN (04:42)
[2017-05-09] MEDS: SODIUM CHLORIDE 1,000 ML IV SCH ×3 (06:10→18:54)
[2017-05-09] MEDS: diazePAM 5 MG TABLET PO PRN ×3 (06:13→20:21)
[2017-05-09 08:06] LABS: BASOPHIL 0.2 % (0-2.0); EOSINOPHIL 0.3 % (0-4.5); MCH 31.1 pg (25.7-33.7); MCHC 32.7 g/dl (32.0-35.9); MEAN CELL VOLUME 95.3 fl (80-96); MEAN PLT VOLUME 8.4 fl (7.5-11.1); PLATELET COUNT 238 K/MM3 (134-434); RDW 13.6 % (11.9-15.9)
[2017-05-09 08:20] LABS: ALBUMIN 2.5 g/dl (3.4-5.0); ALK PHOS 89 U/L (45-117); ANION GAP 4 (8-16); BILIRUBIN,TOTAL 0.7 mg/dL (0.2-1.0); CALCIUM 8.4 mg/dL (8.5-10.1); CO2 29 mmol/L (21-32); CREATININE 0.8 mg/dL (0.7-1.3); GLUCOSE,RANDOM 86 mg/dL (74-106); MAGNESIUM 2.2 mg/dL (1.8-2.4); PHOSPHOROUS 2.3 mg/dL (2.5-4.9); SGOT/AST 55 U/L (15-37); SGPT/ALT 26 U/L (12-78); TOT PROT 5.3 g/dl (6.4-8.2)
[2017-05-09] MEDS: RANITIDINE HCL 150 MG TABLET (FP) PO SCH ×2 (09:00→21:26)
[2017-05-09 09:09] LABS: HIV 1 & 2 AB NEGATIVE; HIV 1 AGp24 NEGATIVE
[2017-05-09] MEDS ORDERED: METHADONE HCL 10 MG TABLET PO SCH (10:00)
[2017-05-09] MEDS ORDERED: METHADONE HCL 10 MG TABLET (FOR DETOX USE ONLY) PO SCH (10:00)
[2017-05-09] MEDS ORDERED: SODIUM CHLORIDE 1,000 ML IV STA (11:00)
--- NOTE | 2017-05-09 11:57 | PN ---
Physical Exam: SUBJECTIVE: Patient seen and examined at bedside. Feels better than yesterday but still with leg cramps and back pain. Slightly nauseous, no vomiting, no diarrhea. OBJECTIVE: Vital Signs Period Temp Pulse Resp BP Sys/Chavez Pulse Ox Last 24 Hr 97.9 F-98.4 F 46-58 19-20 128-156/68-78 96-98 GENERAL: The patient is awake, alert, and fully oriented, in no acute distress. LUNGS: Breath sounds equal, clear to auscultation bilaterally, no wheezes, no crackles, no accessory muscle use. HEART: Regular rate and rhythm, S1, S2 without murmur, rub or gallop. ABDOMEN: Soft, nontender, nondistended, normoactive bowel sounds, no guarding, no rebound EXTREMITIES: 2+ pulses, warm, well-perfused, no edema. NEUROLOGICAL: Cranial nerves II through XII grossly intact. Normal speech, gait not observed. Laboratory Results - last 24 hr 05/08/17 05/09/17 05/09/17 22:10 07:30 07:30 WBC 7.0 D RBC 4.39 Hgb 13.7 D Hct 41.8 MCV 95.3 MCH 31.1 MCHC 32.7 RDW 13.6 Plt Count 238 MPV 8.4 Neutrophils % 78.0 Lymphocytes % 12.5 D Monocytes % 9.0 Eosinophils % 0.3 Basophils % 0.2 Sodium 139 Potassium 3.8 Chloride 106 Carbon Dioxide 29 Anion Gap 4 L BUN 9 D Creatinine 0.8 Creat Clearance w eGFR > 60 Random Glucose 86 Calcium 8.4 L Phosphorus 2.3 L Magnesium 2.2 Total Bilirubin 0.7 AST 55 H D ALT 26 D Alkaline Phosphatase 89 Creatine Kinase Creatine Kinase Index CK-MB (CK-2) Troponin I 0.02 Total Protein 5.3 L Albumin 2.5 L HIV 1&2 Antibody Screen HIV P24 Antigen 05/09/17 05/09/17 07:30 07:30 WBC RBC Hgb Hct MCV MCH MCHC RDW Plt Count MPV Neutrophils % Lymphocytes % Monocytes % Eosinophils % Basophils % Sodium Potassium Chloride Carbon Dioxide Anion Gap BUN Creatinine Creat Clearance w eGFR Random Glucose Calcium Phosphorus Magnesium Total Bilirubin AST ALT Alkaline Phosphatase Creatine Kinase 1705 H Creatine Kinase Index 0.1 CK-MB (CK-2) 3.108 Troponin I Total Protein Albumin HIV 1&2 Antibody Screen Negative HIV P24 Antigen Negative Current Medications Generic Name Dose Route Start Last Admin Trade Name Xuan PRN Reason Stop Dose Admin Acetaminophen 650 mg 05/09/17 04:42 05/09/17 14:03 Tylenol - PO 650 mg Q4H PRN Administration PAIN Diazepam 10 mg 05/09/17 04:42 05/09/17 14:03 Valium - PO 10 mg Q6H PRN Administration WITHDRAWAL SYMPTOMS. Folic Acid 1 mg 05/09/17 13:30 05/09/17 13:57 Folic Acid - PO 1 mg DAILY ULYSSES Administration Sodium Chloride 1,000 mls @ 150 mls/hr 05/09/17 04:45 05/09/17 12:46 Normal Saline - IV 150 mls/hr ASDIR ULYSSES Administration Ranitidine HCl 150 mg 05/09/17 10:00 05/09/17 09:00 Zantac - PO 150 mg BID ULYSSES Administration Thiamine HCl 100 mg 05/09/17 22:00 Vitamin B1 - PO HS [facility] ASSESSMENT/PLAN 56 year-old male with a PMH significant for long history of heroin dependence and depression. Screened at [facility] for detox and ECG showed bifascicular block. Also with CPK 2235. Asymptomatic bifascicular block Asymptomatic bradycardia --incidental findings on screening ECG at [facility] --serial troponins negative --CXR unremarkable --echo ordered --cardiology consult requested Rhabdomyalysis --CPK trending down with aggressive fluids, 2235-->1705 --5 RBCs in UA, urine myoglobin pending --renal function stable --clinical symptoms of muscle aches and back pain improving Orthostatic hypotension, resolved DVT prophylaxis: lovenox, oob, ambulation F/E/N Fluids: NS @ 150mL/hr Electrolytes: replete as indicated Nutrition: regular; patient requested vanilla Ensure with each meal Dispo: continues to require inpatient care. Full Code. Visit type - Emergency Visit Emergency Visit: Yes ED Registration Date: 05/09/17 Care time: The patient presented to the Emergency Department on the above date and was hospitalized for further evaluation of their emergent condition. - New Patient This patient is new to me today: Yes Date on this admission: 05/09/17 - Critical Care Critical Care patient: No
[2017-05-09] MEDS ORDERED: AMITRIPTYLINE HCL 50 MG TABLET PO SCH (12:30)
[2017-05-09] MEDS: FOLIC ACID 1 MG TABLET (FP) PO SCH (13:57)
[2017-05-09] MEDS: ACETAMINOPHEN 325 MG TABLET (FP) PO PRN (14:03)
--- NOTE | 2017-05-09 19:42 | CONSULT ---
Consult Detox [facility] Reason for Current Admission/Consult: opioid dependence and withdrawal sx requiring methadone detoxification Referred by:: gabino Sigala NP - History History of Present Illness: 56 yo m with h/o opioid use disorder was transferred to [facility] 05/08 from [facility] on day 2 of methadone detox because of EKG abnormalities with elevated cardiac enzymes and rhabdomyolysis, now stable with hydration, enzyme trending down awaiting cardiology consult. no h/o nicotine dependence noted - History Source History Provided By: Patient, Medical Record Limitations to Obtaining History: No Limitations - Alcohol/Substance Use Hx Alcohol Use: No Hx Substance Use: Yes (heroin) Hx Substance Use Treatment: Yes (transferred from [facility] day 2 methadone detox ) - Current Drug/Alcohol Use Heroin Route: Inhalation Frequency: Daily Amount used: 8 bags Age of first use: 13 Date of Last Use: 05/04/17 - Past Medical History Gastrointestinal: Yes: GERD Psych: Yes: Depression - Significant Medical Findings: patient reports recent wt loss and symptoms of opioid withdrawal - body aches, back pain, sweats, chills, insomnia, anxiety, tremors COWS - Scale Resting Pulse: 0= NM 80 or Below Sweatin= Chills/Flushing Restless Observation: 0= Sits Still Pupil Size: 0= Normal to Room Light Bone or Joint Aches: 2= Severe Diffuse Aches Runny Nose/ Eye Tearin= Nasal Congestion GI Upset > 30mins: 0= None Tremor Observation: 1= Tremor [place], Not Seen Yawning Observation: 0= None Anxiety or Irritability: 2=Irritable/Anxious Goose Flesh Skin: 0=Smooth Skin COWS Score: 7 Assessment Plan - Diagnosis (1) Opioid dependence with withdrawal Status: Acute (2) Rhabdomyolysis Status: Acute Qualifiers: Rhabdomyolysis type: non-traumatic Qualified Code(s): M62.82 - Rhabdomyolysis; M62.82 - Rhabdomyolysis (3) GERD (gastroesophageal reflux disease) Status: Chronic Qualifiers: Esophagitis presence: without esophagitis Qualified Code(s): K21.9 - Gastro-esophageal reflux disease without esophagitis; K21.9 - Gastro- esophageal reflux disease without esophagitis; K21.9 - Gastro-esophageal reflux disease without esophagitis - Plan Plan: cont methadone detox, valium 10mg q4h prn for anxiety, ambien 10mg prn for sleep , flexeril or tylenol prn for pain/muscle spasm, and other prn symptomatic relief of withdrawal. Can tranfer back to [facility] to complete when medically cleared. Fluids, encourage ambulation. - Medication Detox Regimen/Protocol: Methadone
[2017-05-09] MEDS ORDERED: CYCLOBENZAPRINE HCL 10 MG TABLET (FP) PO PRN (19:51)
[2017-05-09] MEDS ORDERED: ZOLPIDEM TARTRATE 5 MG TABLET PO PRN (19:51)
[2017-05-09] MEDS: THIAMINE HCL 100 MG TABLET (FP) PO SCH (21:26)
[2017-05-09 23:04] LABS: URINE APPEARANCE CLEAR; URINE BILIRUBIN NEGATIVE (NEGATIVE); URINE BLOOD NEGATIVE (NEGATIVE); URINE COLOR STRAW; URINE GLUCOSE (UA) NEGATIVE (NEGATIVE); URINE KETONE NEGATIVE (NEGATIVE); URINE NITRITE NEGATIVE (NEGATIVE); URINE PROTEIN NEGATIVE (NEGATIVE); URINE UROBILINOGEN NEGATIVE mg/dL (0.2-1.0)
[2017-05-10] MEDS: SODIUM CHLORIDE 1,000 ML IV SCH ×2 (01:37→08:23)
[2017-05-10] MEDS: METHADONE HCL 5 MG TABLET PO SCH (06:05)
[2017-05-10 06:59] LABS: BASOPHIL 0.2 % (0-2.0); EOSINOPHIL 1.4 % (0-4.5); MCH 32.1 pg (25.7-33.7); MCHC 33.8 g/dl (32.0-35.9); NEUTROPHILS 72.4 % (42.8-82.8); PLATELET COUNT 241 K/MM3 (134-434); RDW 13.4 % (11.9-15.9); WHITE BLOOD COUNT 6.3 K/mm3 (4.0-10.0)
[2017-05-10] MEDS ORDERED: ONDANSETRON 4 MG TABLET PO PRN (08:21)
[2017-05-10] MEDS ORDERED: ONDANSETRON 8 MG TABLET (FP) PO ONE (08:21)
[2017-05-10] MEDS ORDERED: diazePAM 5 MG TABLET PO ONE (08:30)
[2017-05-10] MEDS ORDERED: ONDANSETRON 4 MG TABLET PO ONE (08:45)
[2017-05-10] MEDS: FOLIC ACID 1 MG TABLET (FP) PO SCH (08:59)
[2017-05-10] MEDS: RANITIDINE HCL 150 MG TABLET (FP) PO SCH ×2 (08:59→22:10)
[2017-05-10] MEDS ORDERED: PRENATAL VITAMINS W/ FOLIC ACID TABLET (FP) PO SCH (10:00)
--- NOTE | 2017-05-10 10:08 | CON.CARD ---
Cardiology Consult (text) - Consultation Consultation Note: CC: ekg ab 56 yo occasional smoker with h/o heroin abuse who presents from [facility] with abnormal EKG, noted to have CK elevation > 1000. Patient states he is asymptomatic. Presented for detox and noted to have an abnormal EKG. Unclear etiology of CK elevation. Denies use of cocaine or stimulants. Denies falling or being immobile for long periods. Erratic po intake. Functional status: Walk regularly, can walk up flight of stairs without symptoms /limitations. The patient denies chest pain, shortness of breath, orthopnea, le edema, palps, dizziness, bleeding, transient neurologic symptoms. Denies fever, chills, sweats, nausea, vomit, diarrhea and constipation. Denies h/a, rashes, visual disturbances. Past surgical history/pmhx: per hpi Social history: Uses Heroin (sniffs), current someday smoker, etoh twice/per week. family hx: no hx of cardiac disease ros: per hpi Ambulatory Orders Acetaminophen [Tylenol] 650 mg PO PRN PRN 05/08/17 Diazepam [Valium] 10 mg PO PRN PRN 05/08/17 Diphenhydramine [Benadryl -] 50 mg PO PRN PRN 05/08/17 Guaifenesin Dm [Robitussin Dm] 10 ml PO PRN PRN 05/08/17 Loperamide HCl [Imodium -] 4 mg PO PRN PRN 05/08/17 Mag Hydrox/Al Hydrox/Simeth [Mylanta *Suspension*] 30 ml PO PRN PRN 05/08/17 Magnesium Citrate [Citroma] 300 ml PO PRN PRN 05/08/17 Magnesium Hydrox 2400MG/30Ml [Milk of Magnesia -] 30 ml PO PRN PRN 05/08/17 Menthol/Phenol [Cepastat Lozenge -] 1 each MM PRN PRN 05/08/17 Methadone (Detox) [Dolophine -] 0 mg PO DAILY 05/08/17 Methadone [Dolophine -] 20 mg PO DAILY 05/08/17 Ondansetron [Zofran Odt -] 8 mg SL PRN PRN 05/08/17 P-Ephed 60Mg/Triprolidi 2.5MG [Actifed -] 1 combo PO PRN PRN 05/08/17 Vit Calc,Iron,Folic [ Vitamins] 1 each PO DAILY 05/08/17 Ranitidine HCl [Zantac] 150 mg PO BID 05/08/17 Thiamine HCl [Vitamin B1] 100 mg PO HS 05/08/17 Current Medications Acetaminophen (Tylenol -) 650 mg PO Q4H PRN PRN Reason: PAIN Last Admin: 05/09/17 14:03 Dose: 650 mg Cyclobenzaprine HCl (Flexeril -) 10 mg PO TID [facility] Diazepam (Valium -) 10 mg PO Q4H PRN PRN Reason: WITHDRAWAL(CONT SUBST) Stop: 05/12/17 19:50 Last Admin: 05/09/17 20:21 Dose: 10 mg Folic Acid (Folic Acid -) 1 mg PO DAILY [facility] Last Admin: 05/10/17 08:59 Dose: 1 mg Gabapentin (Neurontin -) 100 mg PO TID [facility] Sodium Chloride (Normal Saline -) 1,000 mls @ 150 mls/hr IV ASDIR [facility] Last Admin: 05/10/17 08:23 Dose: 150 mls/hr Methadone HCl (Dolophine -) 15 mg PO DAILY@0600 [facility] Last Admin: 05/10/17 06:05 Dose: 15 mg Ondansetron HCl (Zofran -) 8 mg PO Q8H PRN PRN Reason: NAUSEA Ranitidine HCl (Zantac -) 150 mg PO BID [facility] Last Admin: 05/10/17 08:59 Dose: 150 mg Thiamine HCl (Vitamin B1 -) 100 mg PO HS [facility] Last Admin: 05/09/17 21:26 Dose: 100 mg Zolpidem Tartrate (Ambien -) 10 mg PO HS PRN PRN Reason: INSOMNIA Last Admin: 05/09/17 21:26 Dose: 10 mg Vital Signs - 24 hr 05/09/17 05/09/17 05/10/17 14:00 18:00 09:46 Temperature 98.2 F 98.7 F 98.7 F Pulse Rate 50 L 62 54 L Respiratory 21 21 20 Rate Blood Pressure 127/64 134/78 125/55 Intake & Output 05/08/17 05/09/17 05/10/17 05/11/17 07:59 07:59 07:59 07:59 Intake Total 950 5800 Output Total 1500 Balance 950 4300 Weight 108 lb 1 oz nad, thin/cachectic jvd flat, neck supple ctab, nl effort rrr nl s1, s2 no mrg, non-displace pmi + bs soft nt nd ext with trace edema. no cyanosis, clubbing + dp/pt aaox3 no diaphoresis, jaundice no carotid bruits CBC, BMP 05/10/17 06:20 Laboratory Tests 05/08/17 05/08/17 05/08/17 16:33 16:40 16:53 Magnesium Total Bilirubin AST 75 H ALT Alkaline Phosphatase Creatine Kinase 1948 H Creatine Kinase Index 0.2 CK-MB (CK-2) 4.55 H Troponin I 0.02 D Albumin Methadone Screen Positive Benzodiazepines Screen Positive 05/08/17 05/09/17 05/09/17 22:10 07:30 07:30 Magnesium 2.2 Total Bilirubin 0.7 AST 55 H D ALT 26 D Alkaline Phosphatase 89 Creatine Kinase 1705 H Creatine Kinase Index 0.1 CK-MB (CK-2) 3.108 Troponin I 0.02 Albumin 2.5 L Methadone Screen Benzodiazepines Screen EKG: SB RBBB, LAD, deep inferolateral TWI Repeat EKG today, SB RBBB LAD pvc's. inferolateral twi with new biphasic twi in anterior leads. CXR: no chf Echo: Mild lv dilation. Low normal sys fn. nl rv size/fn. 1+ mr. mild-mod tr. A/P 56 yo occasional smoker with h/o heroin abuse who presents from [facility] with abnormal EKG, noted to have CK elevation > 1000. Ab ekg - Echo today with mildly depressed EF. - Ongoing dynamic t wave changes - plan for stress test in am.
[2017-05-10 10:12] LABS: ALBUMIN 2.5 g/dl (3.4-5.0); ANION GAP 7 (8-16); BILIRUBIN,TOTAL 0.3 mg/dL (0.2-1.0); CALCIUM 8.5 mg/dL (8.5-10.1); CO2 27 mmol/L (21-32); CREATININE 0.7 mg/dL (0.7-1.3); GLUCOSE,RANDOM 86 mg/dL (74-106); MAGNESIUM 2.2 mg/dL (1.8-2.4); PHOSPHOROUS 2.1 mg/dL (2.5-4.9); SGOT/AST 51 U/L (15-37); SGPT/ALT 27 U/L (12-78); TOT PROT 5.2 g/dl (6.4-8.2)
[2017-05-10 10:25] LABS: ALK PHOS 86 U/L (45-117); CPK 1441 IU/L (39-308)
[2017-05-10] MEDS: GABAPENTIN 100 MG CAPSULE (FP) PO SCH ×2 (13:42→22:10)
[2017-05-10] MEDS: CYCLOBENZAPRINE HCL 10 MG TABLET (FP) PO SCH ×2 (13:43→22:10)
[2017-05-10] MEDS: diazePAM 5 MG TABLET PO PRN ×2 (14:23→18:56)
[2017-05-10 15:47] LABS: URINE LEUK ESTERASE Negative (NEGATIVE)
--- NOTE | 2017-05-10 16:17 | PN ---
Physical Exam: SUBJECTIVE: Patient seen and examined at the bedside. Reports subjective body aches, back pain and intermittent hiccups. States these are the symptoms he has when he withdraws from heroin use. OBJECTIVE: Vital Signs Period Temp Pulse Resp BP Sys/Chavez Pulse Ox Last 24 Hr 98.6 F-98.7 F 50-62 19-21 125-134/55-78 GENERAL: The patient is awake, alert, and fully oriented, in no acute distress. HEAD: Normal with no signs of trauma. EYES: PERRL, extraocular movements intact, sclera anicteric, conjunctiva clear. No ptosis. ENT: Ears normal, nares patent, oropharynx clear without exudates, moist mucous membranes. NECK: Trachea midline, full range of motion, supple. LUNGS: Breath sounds equal, clear to auscultation bilaterally, no wheezes, no crackles, no accessory muscle use. HEART: Regular rate and rhythm, S1, S2 without murmur, rub or gallop. ABDOMEN: Soft, nontender, nondistended, normoactive bowel sounds, no guarding, no rebound, no hepatosplenomegaly, no masses. EXTREMITIES: 2+ pulses, warm, well-perfused, no edema. NEUROLOGICAL: Normal speech, gait not observed. PSYCH: Normal mood, normal affect. SKIN: Warm, dry, normal turgor, no rashes or lesions noted Laboratory Results - last 24 hr 05/09/17 05/10/17 05/10/17 22:09 06:20 06:20 WBC 6.3 RBC 4.11 Hgb 13.2 Hct 39.0 MCV 95.0 MCH 32.1 MCHC 33.8 RDW 13.4 Plt Count 241 MPV 8.0 Neutrophils % 72.4 Lymphocytes % 15.9 D Monocytes % 10.1 Eosinophils % 1.4 D Basophils % 0.2 Sodium 139 Potassium 3.7 Chloride 105 Carbon Dioxide 27 Anion Gap 7 L BUN 9 Creatinine 0.7 Creat Clearance w eGFR > 60 Random Glucose 86 Calcium 8.5 Phosphorus 2.1 L Magnesium 2.2 Total Bilirubin 0.3 D AST 51 H ALT 27 Alkaline Phosphatase 86 Creatine Kinase 1441 H Creatine Kinase Index 0.1 CK-MB (CK-2) 2.575 Total Protein 5.2 L Albumin 2.5 L Urine Color Straw Urine Appearance Clear Urine pH 7.0 Ur Specific [place] 1.010 Urine Protein Negative Urine Glucose (UA) Negative Urine Ketones Negative Urine Blood Negative Urine Nitrite Negative Urine Bilirubin Negative Urine Urobilinogen Negative Ur Leukocyte Esterase Negative Active Medications Generic Name Dose Route Start Last Admin Trade Name Bijuq PRN Reason Stop Dose Admin Acetaminophen 650 mg 05/09/17 04:42 05/09/17 14:03 Tylenol - PO 650 mg Q4H PRN Administration PAIN Cyclobenzaprine HCl 10 mg 05/10/17 14:00 05/10/17 13:43 Flexeril - PO 10 mg TID [facility] Administration Diazepam 10 mg 05/09/17 19:50 05/10/17 14:23 Valium - PO 05/12/17 19:50 10 mg Q4H PRN Administration WITHDRAWAL(CONT SUBST) Folic Acid 1 mg 05/09/17 13:30 05/10/17 08:59 Folic Acid - PO 1 mg DAILY [facility] Administration Gabapentin 100 mg 05/10/17 14:00 05/10/17 13:42 Neurontin - PO 100 mg TID [facility] Administration Sodium Chloride 1,000 mls @ 150 mls/hr 05/09/17 04:45 05/10/17 08:23 Normal Saline - IV 150 mls/hr ASDIR [facility] Administration Methadone HCl 15 mg 05/10/17 06:00 05/10/17 06:05 Dolophine - PO 15 mg DAILY@0600 [facility] Administration Ondansetron HCl 8 mg 05/10/17 08:21 Zofran - PO Q8H PRN NAUSEA Ranitidine HCl 150 mg 05/09/17 10:00 05/10/17 08:59 Zantac - PO 150 mg BID [facility] Administration Thiamine HCl 100 mg 05/09/17 22:00 05/09/17 21:26 Vitamin B1 - PO 100 mg HS [facility] Administration Zolpidem Tartrate 10 mg 05/09/17 19:51 05/09/17 21:26 Ambien - PO 10 mg HS PRN Administration INSOMNIA ASSESSMENT/PLAN: Patient is a 56 year old male with a significant past medical history of heroin dependence and depression. He was at [facility] for detox and ECG showed bifascicular block. His CPK was also noted to be elevated at 2235. He is admitted to [facility] from [facility] on 05/09/2017. Cardiology: Asymptomatic bifascicular block/Asymptomatic bradycardia A/P: incidental findings on ECG at [facility] Denies chest pain, shortness of breath Troponins negative Cardiology consulted Renal: Rhabdomyalysis, acute A/P: CPK on admission 2235, now 1441 Urine myoglobin pending On aggressive IVF hydration Renal function currently stable, adequate urine output Psyche: Heroin abuse/dependence A/P: Was at [facility] for detox, will continue On Valium 10mg PO q4 and Methadone 15mg PO daily F.E.N. Fluids: NS @ 150cc/hr Electrolytes: monitor Nutrition: low sodium Prophylaxis: DVT: Lovenox GI: deferred Disposition. Continues to require inpatient care. Full Code.
[2017-05-10] MEDS ORDERED: ENOXAPARIN NA (PORCINE) 40 MG/0.4 ML DISP.SYRIN SQ SCH (18:00)
[2017-05-10] MEDS ORDERED: ZOLPIDEM TARTRATE 5 MG TABLET PO PRN (22:00)
[2017-05-10] MEDS: HEPARIN NA (PORCINE) 5,000 UNITS/ML 1ML VIAL SQ SCH (22:09)
[2017-05-10] MEDS: THIAMINE HCL 100 MG TABLET (FP) PO SCH (22:10)
[2017-05-10] MEDS: NAPH,MB-DB/K PH,MBDB POWDER PACKET PO SCH (22:10)
[2017-05-11] MEDS: SODIUM CHLORIDE 1,000 ML IV SCH (05:00)
[2017-05-11] MEDS: CYCLOBENZAPRINE HCL 10 MG TABLET (FP) PO SCH ×3 (05:48→22:43)
[2017-05-11] MEDS: GABAPENTIN 100 MG CAPSULE (FP) PO SCH ×3 (05:48→22:43)
[2017-05-11] MEDS: METHADONE HCL 5 MG TABLET PO SCH (05:49)
[2017-05-11 06:51] LABS: ALBUMIN 2.5 g/dl (3.4-5.0); ANION GAP 7 (8-16); CALCIUM 8.5 mg/dL (8.5-10.1); CO2 29 mmol/L (21-32); GLUCOSE,RANDOM 75 mg/dL (74-106)
[2017-05-11 06:54] LABS: ALK PHOS 79 U/L (45-117); BILIRUBIN,TOTAL 0.3 mg/dL (0.2-1.0); CREATININE 0.7 mg/dL (0.7-1.3); SGOT/AST 42 U/L (15-37); SGPT/ALT 26 U/L (12-78); TOT PROT 5.2 g/dl (6.4-8.2)
[2017-05-11 06:59] LABS: BASOPHIL 0.2 % (0-2.0); MCH 31.4 pg (25.7-33.7); MCHC 33.2 g/dl (32.0-35.9); MEAN CELL VOLUME 94.7 fl (80-96); MEAN PLT VOLUME 9.5 fl (7.5-11.1); NEUTROPHILS 70.6 % (42.8-82.8); PLATELET COUNT 192 K/MM3 (134-434); RDW 13.5 % (11.9-15.9); WHITE BLOOD COUNT 6.1 K/mm3 (4.0-10.0)
[2017-05-11] MEDS: RANITIDINE HCL 150 MG TABLET (FP) PO SCH ×2 (14:07→22:43)
[2017-05-11] MEDS: diazePAM 5 MG TABLET PO PRN (14:07)
[2017-05-11] MEDS: FOLIC ACID 1 MG TABLET (FP) PO SCH (14:08)
[2017-05-11] MEDS: HEPARIN NA (PORCINE) 5,000 UNITS/ML 1ML VIAL SQ SCH ×2 (14:08→22:43)
[2017-05-11] MEDS: NAPH,MB-DB/K PH,MBDB POWDER PACKET PO SCH ×2 (14:09→22:43)
[2017-05-11] MEDS ORDERED: METHADONE HCL 5 MG TABLET PO SCH (15:17)
--- NOTE | 2017-05-11 15:36 | PN ---
Progress Note (short form) - Note Progress Note: CC: ekg ab Current Medications Acetaminophen (Tylenol -) 650 mg PO Q4H PRN PRN Reason: PAIN Last Admin: 05/09/17 14:03 Dose: 650 mg Cyclobenzaprine HCl (Flexeril -) 10 mg PO TID [facility] Last Admin: 05/11/17 14:09 Dose: 10 mg Folic Acid (Folic Acid -) 1 mg PO DAILY [facility] Last Admin: 05/11/17 14:08 Dose: 1 mg Gabapentin (Neurontin -) 100 mg PO TID [facility] Last Admin: 05/11/17 14:07 Dose: 100 mg Heparin Sodium (Porcine) (Heparin -) 5,000 unit SQ BID [facility] Last Admin: 05/11/17 14:08 Dose: 5,000 unit Sodium Chloride (Normal Saline -) 1,000 mls @ 150 mls/hr IV ASDIR [facility] Last Admin: 05/11/17 05:00 Dose: 150 mls/hr Methadone HCl (Dolophine -) 10 mg PO DAILY@0600 [facility] Potassium Phos/Sodium Phos (Phos-Nak Packet -) 1 packet PO BID [facility] Last Admin: 05/11/17 14:09 Dose: 1 packet Ranitidine HCl (Zantac -) 150 mg PO BID [facility] Last Admin: 05/11/17 14:07 Dose: 150 mg Thiamine HCl (Vitamin B1 -) 100 mg PO HS [facility] Last Admin: 05/10/17 22:10 Dose: 100 mg Zolpidem Tartrate (Ambien -) 10 mg PO HS PRN Last Admin: 05/10/17 22:10 Dose: 10 mg Vital Signs - 24 hr 05/10/17 05/10/17 05/11/17 21:00 22:49 02:00 Temperature 98.8 F 98 F 98.6 F Pulse Rate 45 L 50 L 40 L Respiratory 18 18 18 Rate Blood Pressure 130/65 125/62 134/71 O2 Sat by Pulse 100 Oximetry (%) 05/11/17 05/11/17 05/11/17 06:00 08:39 09:00 Temperature 97.9 F 98.2 F Pulse Rate 44 L 43 L Respiratory 18 18 Rate Blood Pressure 144/74 155/64 O2 Sat by Pulse 99 Oximetry (%) 05/11/17 14:15 Temperature 98.5 F Pulse Rate 44 L Respiratory 16 Rate Blood Pressure 122/62 O2 Sat by Pulse Oximetry (%) Intake & Output 05/09/17 05/10/17 05/11/17 05/12/17 07:59 07:59 07:59 07:59 Intake Total 950 5800 3660 Output Total 1500 1825 Balance 950 4300 1835 Weight 108 lb 1 oz nad, thin/cachectic jvd flat, neck supple ctab, nl effort rrr nl s1, s2 no mrg, non-displace pmi + bs soft nt nd ext with trace edema. no cyanosis, clubbing + dp/pt aaox3 no diaphoresis, jaundice no carotid bruits CBC, BMP 05/11/17 05:10 05/11/17 05:10 EKG: SB RBBB, LAD, deep inferolateral TWI Repeat EKG : , SB RBBB LAD pvc's. inferolateral twi with new biphasic twi in anterior leads. qtc difficult to assess in setting of rbbb, but appears wnl. tele: signfificant bradycardia 40's with dips into 30's (asx). frequent ectopy wit bigeminal rhythm CXR: no chf Echo: Mild lv dilation. Low normal sys fn. nl rv size/fn. 1+ mr. mild-mod tr. A/P 56 yo occasional smoker with h/o heroin abuse who presents from [facility] with abnormal EKG, noted to have CK elevation > 1000. Ab ekg - Echo with mildly depressed EF. EKG with bradycardia RBBB, inferolateral TWI and dynamic t wave changes with new biphasic twi in anterior leads. - transferred to tele --> significant bradycardia vs. junctional rhythm with frequent ectopy - stress test in am, results still pending. - Significant bradycardia on tele with ectopy. Qt prolongation would put him at risk for arrhythmia. Currently qtc appears wnl, but would avoid qt prolonging medications when possible. - lyte repletion prn. - con't tele monitoring to better assess bradycardia.
--- NOTE | 2017-05-11 17:17 | PN ---
Physical Exam: SUBJECTIVE: Patient seen and examined. He reports feeling better today. Denies any dizziness, weakness, chest pain or shortness of breath. OBJECTIVE: Valium discontinued by psych physician likely secondary to bradycaria and ekg changes Patient on Methadone Vital Signs Period Temp Pulse Resp BP Sys/Chavez Pulse Ox Last 24 Hr 97.9 F-98.8 F 40-50 16-18 122-155/62-74 99-100 GENERAL: The patient is awake, alert, and fully oriented, in no acute distress. HEAD: Normal with no signs of trauma. EYES: PERRL, extraocular movements intact, sclera anicteric, conjunctiva clear. No ptosis. ENT: Ears normal, nares patent, oropharynx clear without exudates, moist mucous membranes. NECK: Trachea midline, full range of motion, supple. LUNGS: Breath sounds equal, clear to auscultation bilaterally, no wheezes, no crackles, no accessory muscle use. HEART: Regular rate and rhythm, S1, S2 without murmur, rub or gallop. ABDOMEN: Soft, nontender, nondistended, normoactive bowel sounds, no guarding, no rebound, no hepatosplenomegaly, no masses. EXTREMITIES: 2+ pulses, warm, well-perfused, no edema. NEUROLOGICAL: Normal speech, gait not observed. PSYCH: Normal mood, normal affect. SKIN: Warm, dry, normal turgor, no rashes or lesions noted Laboratory Results - last 24 hr 05/11/17 05/11/17 05/11/17 05:10 05:10 05:10 WBC 6.1 RBC 4.10 Hgb 12.9 Hct 38.8 MCV 94.7 MCH 31.4 MCHC 33.2 RDW 13.5 Plt Count 192 D MPV 9.5 D Neutrophils % 70.6 Lymphocytes % 17.4 Monocytes % 9.8 Eosinophils % 2.0 Basophils % 0.2 Sodium 140 Potassium 4.1 Chloride 104 Carbon Dioxide 29 Anion Gap 7 L BUN 9 Creatinine 0.7 Creat Clearance w eGFR > 60 Random Glucose 75 Calcium 8.5 Total Bilirubin 0.3 AST 42 H ALT 26 Alkaline Phosphatase 79 Creatine Kinase 875 H Creatine Kinase Index 0.1 CK-MB (CK-2) 1.573 Total Protein 5.2 L Albumin 2.5 L Active Medications Generic Name Dose Route Start Last Admin Trade Name Freq PRN Reason Stop Dose Admin Acetaminophen 650 mg 05/09/17 04:42 05/09/17 14:03 Tylenol - PO 650 mg Q4H PRN Administration PAIN Cyclobenzaprine HCl 5 mg 05/11/17 22:00 Flexeril - PO TID [facility] Folic Acid 1 mg 05/09/17 13:30 05/11/17 14:08 Folic Acid - PO 1 mg DAILY [facility] Administration Gabapentin 100 mg 05/10/17 14:00 05/11/17 14:07 Neurontin - PO 100 mg TID [facility] Administration Heparin Sodium (Porcine) 5,000 unit 05/10/17 22:00 05/11/17 14:08 Heparin - SQ 5,000 unit BID [facility] Administration Sodium Chloride 1,000 mls @ 150 mls/hr 05/09/17 04:45 05/11/17 05:00 Normal Saline - IV 150 mls/hr ASDIR [facility] Administration Methadone HCl 10 mg 05/11/17 15:17 Dolophine - PO DAILY@0600 [facility] Potassium Phos/Sodium Phos 1 packet 05/10/17 22:00 05/11/17 14:09 Phos-Nak Packet - PO 1 packet BID [facility] Administration Ranitidine HCl 150 mg 05/09/17 10:00 05/11/17 14:07 Zantac - PO 150 mg BID [facility] Administration Thiamine HCl 100 mg 05/09/17 22:00 05/10/17 22:10 Vitamin B1 - PO 100 mg HS [facility] Administration Zolpidem Tartrate 10 mg 05/10/17 22:00 05/10/17 22:10 Ambien - PO 10 mg HS PRN Administration ASSESSMENT/PLAN: Patient is a 56 year old male with a significant past medical history of heroin dependence and depression. He was at [facility] for detox when a routine ECG showed bifascicular block. His CPK was also noted to be elevated at 2235. He is admitted to [facility] from [facility] on 05/09/2017 for rhabdomyloysis and EKG changes. Imaging: Echo: LV mild dilated, LV systolic function is low normal, mild MR, no pericardial effusion Cardiology: Asymptomatic bifascicular block/Asymptomatic bradycardia, acute finding on routine test @ [facility] A/P: incidental findings on ECG at [facility] Denies chest pain, shortness of breath Troponins negative Cardiology and following, notes reviewed EKG with right bundle branch block and t wave changes, possible qt prolongation. He remains jessica in the 40s but remains asymptomatic QT prolongation medication such as Zofran discontinued. Valium also discontinued by ashley Will stop ambien also, substitute with Benadryl Stress test pending Renal: Rhabdomyalysis, acute/resolving A/P: CPK on admission 2235, now 875 Urine myoglobin pending On aggressive IVF hydration to continue until tomorrow Renal function currently stable, adequate urine output Psyche: Heroin abuse/dependence A/P: Was at [facility] for detox, will continue methadone Valium stopped by Ashley FMichael. Fluids: NS @ 150cc/hr Electrolytes: monitor Nutrition: low sodium Prophylaxis: DVT: Lovenox GI: deferred Disposition. Continues to require inpatient care. Full Code. Visit type - Emergency Visit Emergency Visit: Yes ED Registration Date: 05/09/17 Care time: The patient presented to the Emergency Department on the above date and was hospitalized for further evaluation of their emergent condition. - New Patient This patient is new to me today: No - Critical Care Critical Care patient: No - Discharge Referral Referred to [facility] Med P.C.: No
[2017-05-11] MEDS ORDERED: diazePAM 5 MG TABLET PO ONE (18:14)
[2017-05-11] MEDS ORDERED: ZOLPIDEM TARTRATE 5 MG TABLET PO PRN (19:08)
[2017-05-11] MEDS ORDERED: diphenhydrAMINE HCL 25 MG CAPSULE (FP) PO SCH (22:00)
[2017-05-11] MEDS: THIAMINE HCL 100 MG TABLET (FP) PO SCH (22:43)
[2017-05-12] MEDS: SODIUM CHLORIDE 1,000 ML IV SCH (06:19)
[2017-05-12] MEDS: CYCLOBENZAPRINE HCL 10 MG TABLET (FP) PO SCH ×4 (06:20→21:34)
[2017-05-12] MEDS: GABAPENTIN 100 MG CAPSULE (FP) PO SCH ×4 (06:21→21:34)
[2017-05-12 06:40] LABS: BASOPHIL 0.7 % (0-2.0); EOSINOPHIL 3.1 % (0-4.5); MCH 31.2 pg (25.7-33.7); MCHC 32.8 g/dl (32.0-35.9); MEAN CELL VOLUME 95.2 fl (80-96); MEAN PLT VOLUME 8.5 fl (7.5-11.1); NEUTROPHILS 62.3 % (42.8-82.8); PLATELET COUNT 260 K/MM3 (134-434); RDW 13.4 % (11.9-15.9); WHITE BLOOD COUNT 5.4 K/mm3 (4.0-10.0)
[2017-05-12 07:08] LABS: ALBUMIN 2.6 g/dl (3.4-5.0); CALCIUM 8.9 mg/dL (8.5-10.1)
[2017-05-12 07:13] LABS: ALK PHOS 84 U/L (45-117); ANION GAP 8 (8-16); BILIRUBIN,TOTAL 0.3 mg/dL (0.2-1.0); CO2 30 mmol/L (21-32); CREATININE 0.7 mg/dL (0.7-1.3); GLUCOSE,RANDOM 78 mg/dL (74-106); MAGNESIUM 2.1 mg/dL (1.8-2.4); PHOSPHOROUS 3.4 mg/dL (2.5-4.9); SGOT/AST 35 U/L (15-37); SGPT/ALT 26 U/L (12-78); TOT PROT 5.5 g/dl (6.4-8.2)
[2017-05-12 08:24] LABS: CPK 589 IU/L (39-308)
--- NOTE | 2017-05-12 09:35 | PN ---
Physical Exam: SUBJECTIVE: Patient seen and examined at the bedside. He continues to c/o of opioid withdrawal symptoms such as anxiety, body aches, back pain, leg pain. OBJECTIVE: One time dose of Valium 2mg given today for his withdrawal symptoms Importance of avoiding medications that cause can prolong QT discussed with patient He is on methadone daily On Valium 10mg @ HS as per Dr. Vasquez Vital Signs Period Temp Pulse Resp BP Sys/Chavez Pulse Ox Last 24 Hr 98.0 F-98.5 F 43-51 16-20 114-149/47-67 100 GENERAL: The patient is awake, alert, and fully oriented, in no acute distress. HEAD: Normal with no signs of trauma. EYES: PERRL, extraocular movements intact, sclera anicteric, conjunctiva clear. No ptosis. ENT: Ears normal, nares patent, oropharynx clear without exudates, moist mucous membranes. NECK: Trachea midline, full range of motion, supple. LUNGS: Breath sounds equal, clear to auscultation bilaterally, no wheezes, no crackles, no accessory muscle use. HEART: Bradycardia between 40s-70s on architectural sales consultant ABDOMEN: Soft, nontender, nondistended, normoactive bowel sounds, no guarding, no rebound, no hepatosplenomegaly, no masses. EXTREMITIES: 2+ pulses, warm, well-perfused, no edema. NEUROLOGICAL: Normal speech, gait not observed. PSYCH: Normal mood, normal affect, anxiety SKIN: Warm, dry, normal turgor, no rashes or lesions noted Laboratory Results - last 24 hr 05/12/17 05/12/17 05/12/17 05:10 06:05 06:05 WBC 5.4 RBC 4.11 Hgb 12.8 Hct 39.1 MCV 95.2 MCH 31.2 MCHC 32.8 RDW 13.4 Plt Count 260 D MPV 8.5 D Neutrophils % 62.3 Lymphocytes % 23.0 D Monocytes % 10.9 H Eosinophils % 3.1 Basophils % 0.7 D Sodium 139 Potassium 4.3 Chloride 101 Carbon Dioxide 30 Anion Gap 8 BUN 10 Creatinine 0.7 Creat Clearance w eGFR > 60 Random Glucose 78 Calcium 8.9 Phosphorus 3.4 D Magnesium 2.1 Total Bilirubin 0.3 AST 35 ALT 26 Alkaline Phosphatase 84 Creatine Kinase Cancelled 589 H Creatine Kinase Index 0.1 CK-MB (CK-2) < 1.000 Total Protein 5.5 L Albumin 2.6 L Active Medications Generic Name Dose Route Start Last Admin Trade Name Bijuq PRN Reason Stop Dose Admin Acetaminophen 650 mg 05/09/17 04:42 05/09/17 14:03 Tylenol - PO 650 mg Q4H PRN Administration PAIN Cyclobenzaprine HCl 5 mg 05/11/17 22:00 05/12/17 06:20 Flexeril - PO 5 mg TID ULYSSES Administration Folic Acid 1 mg 05/09/17 13:30 05/11/17 14:08 Folic Acid - PO 1 mg DAILY [facility] Administration Gabapentin 100 mg 05/10/17 14:00 05/12/17 06:21 Neurontin - PO 100 mg TID [facility] Administration Heparin Sodium (Porcine) 5,000 unit 05/10/17 22:00 05/11/17 22:43 Heparin - SQ 5,000 unit BID [facility] Administration Sodium Chloride 1,000 mls @ 150 mls/hr 05/09/17 04:45 05/12/17 06:19 Normal Saline - IV 150 mls/hr ASDIR [facility] Administration Methadone HCl 10 mg 05/11/17 15:17 05/12/17 06:20 Dolophine - PO 10 mg DAILY@0600 U[facility] Administration Potassium Phos/Sodium Phos 1 packet 05/10/17 22:00 05/11/17 22:43 Phos-Nak Packet - PO 1 packet BID [facility] Administration Ranitidine HCl 150 mg 05/09/17 10:00 05/11/17 22:43 Zantac - PO 150 mg BID ULYSSES Administration Thiamine HCl 100 mg 05/09/17 22:00 05/11/17 22:43 Vitamin B1 - PO 100 mg HS ULYSSES Administration Zolpidem Tartrate 10 mg 05/11/17 19:08 Ambien - PO HS PRN INSOMNIA ASSESSMENT/PLAN: Patient is a 56 year old male with a significant past medical history of heroin dependence and depression. He was at [facility] for detox when a routine ECG showed bifascicular block. His CPK was also noted to be elevated at 2235. He is admitted to [facility] from [facility] on 05/09/2017 for rhabdomyloysis and EKG changes. Imaging: Echo: LV mild dilated, LV systolic function is low normal, mild MR, no pericardial effusion NM/stress test 05/11/17: LV appears dilated during rest and stress images, subtle perfusion defect involving the inferior wall is compatible with ischemia , LV 37%, LV EF 42%, LV EJ during stress 42% Cardiology: Asymptomatic bifascicular block/Asymptomatic bradycardia, acute finding on routine test @ [facility] A/P: incidental findings on ECG at [facility], EKG with RBBB and t wave changes w /poss. qt prolongation Was initially jessica in the 40s on architectural sales consultant, valium dose decreased to 10mg @ hs Denies chest pain, shortness of breath Troponins negative Cardiology and following, notes reviewed QT prolongation medication such as Zofran discontinued. Valium dose decreased by psyche Stress as above, ASA 81mg started, statin to start tomorrow Renal: Rhabdomyalysis, acute/resolving A/P: CPK on admission 2235, now 589 Urine myoglobin <2 Will d/c ivf, encourage PO intake Renal function currently stable, adequate urine output Psyche: Heroin abuse/dependence A/P: Was at [facility] for detox, will continue methadone Valium dose decreased by Dr. Christina Harrison Fluids: tolerating PO Electrolytes: monitor Nutrition: low sodium Prophylaxis: DVT: Lovenox GI: deferred Disposition. Discharge back to [facility] for continuation of detox once cleared by cardiology. Full Code. Visit type - Emergency Visit Emergency Visit: Yes ED Registration Date: 05/09/17 Care time: The patient presented to the Emergency Department on the above date and was hospitalized for further evaluation of their emergent condition. - New Patient This patient is new to me today: No - Critical Care Critical Care patient: No - Discharge Referral Referred to [facility] Med P.C.: No
[2017-05-12] MEDS ORDERED: diazePAM 2 MG TABLET PO ONE (10:00)
[2017-05-12] MEDS: HEPARIN NA (PORCINE) 5,000 UNITS/ML 1ML VIAL SQ SCH ×2 (10:04→21:34)
[2017-05-12] MEDS: FOLIC ACID 1 MG TABLET (FP) PO SCH (10:04)
[2017-05-12] MEDS: NAPH,MB-DB/K PH,MBDB POWDER PACKET PO SCH ×2 (10:04→21:34)
[2017-05-12] MEDS: RANITIDINE HCL 150 MG TABLET (FP) PO SCH ×2 (10:04→21:33)
[2017-05-12] MEDS: ACETAMINOPHEN 325 MG TABLET (FP) PO PRN (10:05)
--- NOTE | 2017-05-12 10:34 | PN ---
Progress Note (short form) - Note Progress Note: s: no cp sob palps dizzy Current Medications Generic Name Dose Route Start Last Admin Trade Name Freq PRN Reason Stop Dose Admin Acetaminophen 650 mg 05/09/17 04:42 05/12/17 10:05 Tylenol - PO 650 mg Q4H PRN Administration PAIN Cyclobenzaprine HCl 5 mg 05/11/17 22:00 05/12/17 06:20 Flexeril - PO 5 mg TID ULYSSES Administration Folic Acid 1 mg 05/09/17 13:30 05/12/17 10:04 Folic Acid - PO 1 mg DAILY ULYSSES Administration Gabapentin 100 mg 05/10/17 14:00 05/12/17 06:21 Neurontin - PO 100 mg TID ULYSSES Administration Heparin Sodium (Porcine) 5,000 unit 05/10/17 22:00 05/12/17 10:04 Heparin - SQ 5,000 unit BID ULYSSES Administration Sodium Chloride 1,000 mls @ 150 mls/hr 05/09/17 04:45 05/12/17 06:19 Normal Saline - IV 150 mls/hr ASDIR ULYSSES Administration Methadone HCl 10 mg 05/11/17 15:17 05/12/17 06:20 Dolophine - PO 10 mg DAILY@0600 ULYSSES Administration Potassium Phos/Sodium Phos 1 packet 05/10/17 22:00 05/12/17 10:04 Phos-Nak Packet - PO 1 packet BID ULYSSES Administration Ranitidine HCl 150 mg 05/09/17 10:00 05/12/17 10:04 Zantac - PO 150 mg BID ULYSSES Administration Thiamine HCl 100 mg 05/09/17 22:00 05/11/17 22:43 Vitamin B1 - PO 100 mg HS ULYSSES Administration Zolpidem Tartrate 10 mg 05/11/17 19:08 Ambien - PO HS PRN INSOMNIA Vital Signs Period Temp Pulse Resp BP Sys/Chavez Pulse Ox Last 24 Hr 98.0 F-98.7 F 43-51 16-20 114-149/47-87 99-100 nad, thin/cachectic jvd flat, neck supple ctab, nl effort rrr nl s1, s2 no mrg + bs soft nt nd ext with trace edema. no cyanosis, clubbing aaox3 no diaphoresis, jaundice CBC, BMP 05/12/17 06:05 05/12/17 06:05 ECG: SB RBBB, LAD, deep inferolateral TWI Repeat EKG : , SB RBBB LAD pvc's. inferolateral twi with new biphasic twi in anterior leads. qtc difficult to assess in setting of rbbb, but appears wnl. tele: sr in 60s, no sig jessica CXR: no chf Echo: Mild lv dilation. Low normal sys fn. nl rv size/fn. 1+ mr. mild-mod tr. mibi 05/2017: mild apical ischemia, subtle inferior ischemia, mod dec lvef A/P 56 yo occasional smoker with h/o [place] [facility] [place], noted to have CK elevation > 1000. Ab ekg - Echo with mildly depressed EF. EKG with bradycardia RBBB, inferolateral TWI and dynamic t wave changes with new biphasic twi in anterior leads. - transferred to tele --> significant bradycardia vs. junctional rhythm with frequent ectopy - after stopping valium HR has improved, currently in sr in 60s - stress test with low risk findings and pt has no cardiac sxs so would manage medically. Can start statin when ck normal and can start asa 81 as well.
--- NOTE | 2017-05-12 10:55 | PN ---
S COWS - Scale Resting Pulse: 0= NH 80 or Below Sweatin= No chills or Flushing Restless Observation: 0= Sits Still Pupil Size: 0= Normal to Room Light Bone or Joint Aches: 2= Severe Diffuse Aches Runny Nose/ Eye Tearin= None GI Upset > 30mins: 0= None Tremor Observation of Outstretched Hands: 0= None Yawning Observation: 0= None Anxiety or Irritability: 2=Irritable/Anxious Goose Flesh Skin: 0=Smooth Skin COWS Score: 4 S Progress Note (SOAP) Subjective: still c/o opioid withdrawal sx, diffuse body aches, back pain, insomnia and anxiety, sweats, advised of risks of methadone detox with his bradycardia at this time Objective: 05/12/17 10:51 Vital Signs - 24 hr 05/11/17 05/11/17 05/11/17 14:15 17:00 21:00 Temperature 98.5 F 98.0 F Pulse Rate 44 L 51 L Respiratory 16 20 Rate Blood Pressure 122/62 121/65 O2 Sat by Pulse 100 Oximetry (%) 05/11/17 05/12/17 05/12/17 21:14 02:00 06:00 Temperature 98.4 F 98.1 F Pulse Rate 46 L 49 L 43 L Respiratory 20 18 20 Rate Blood Pressure 114/47 149/67 132/67 O2 Sat by Pulse Oximetry (%) 05/12/17 10:00 Temperature 98.7 F Pulse Rate 51 L Respiratory 18 Rate Blood Pressure 135/87 O2 Sat by Pulse 99 Oximetry (%) Laboratory Tests 05/08/17 05/08/17 05/08/17 16:33 16:33 16:40 WBC 11.2 H RBC 4.95 Hgb 15.4 Hct 46.8 MCV 94.6 MCH 31.1 MCHC 32.9 RDW 13.7 Plt Count 241 MPV 8.1 Neutrophils % 79.6 Lymphocytes % 8.4 Monocytes % 11.0 H Eosinophils % 0.8 Basophils % 0.2 Sodium 135 L Potassium 4.2 Chloride 97 L Carbon Dioxide 28 Anion Gap 10 BUN 15 Creatinine 0.8 Creat Clearance w eGFR > 60 Random Glucose 99 Calcium 8.8 Phosphorus Magnesium Total Bilirubin 0.8 AST 75 H ALT 33 Alkaline Phosphatase 102 Creatine Kinase 1948 H Creatine Kinase Index 0.2 CK-MB (CK-2) 4.55 H Troponin I 0.02 D Total Protein 6.3 L Albumin 3.0 L Urine Color Urine Appearance Urine pH Ur Specific [place] Urine Protein Urine Glucose (UA) Urine Ketones Urine Blood Urine Nitrite Urine Bilirubin Urine Urobilinogen Ur Leukocyte Esterase Urine Myoglobin Opiates Screen Methadone Screen Barbiturate Screen Phencyclidine Screen Ur Amphetamines Screen MDMA (Ecstasy) Screen Benzodiazepines Screen Cocaine Screen U Marijuana (THC) Screen HIV 1&2 Antibody Screen HIV P24 Antigen 05/08/17 05/08/17 05/09/17 16:53 22:10 04:00 WBC RBC Hgb Hct MCV MCH MCHC RDW Plt Count MPV Neutrophils % Lymphocytes % Monocytes % Eosinophils % Basophils % Sodium Potassium Chloride Carbon Dioxide Anion Gap BUN Creatinine Creat Clearance w eGFR Random Glucose Calcium Phosphorus Magnesium Total Bilirubin AST ALT Alkaline Phosphatase Creatine Kinase Creatine Kinase Index CK-MB (CK-2) Troponin I 0.02 Total Protein Albumin Urine Color Urine Appearance Urine pH Ur Specific [place] Urine Protein Urine Glucose (UA) Urine Ketones Urine Blood Urine Nitrite Urine Bilirubin Urine Urobilinogen Ur Leukocyte Esterase Urine Myoglobin <2 Opiates Screen Negative Methadone Screen Positive Barbiturate Screen Negative Phencyclidine Screen Negative Ur Amphetamines Screen Negative MDMA (Ecstasy) Screen Negative Benzodiazepines Screen Positive Cocaine Screen Negative U Marijuana (THC) Screen Negative HIV 1&2 Antibody Screen HIV P24 Antigen 05/09/17 05/09/17 05/09/17 07:30 07:30 07:30 WBC 7.0 D RBC 4.39 Hgb 13.7 D Hct 41.8 MCV 95.3 MCH 31.1 MCHC 32.7 RDW 13.6 Plt Count 238 MPV 8.4 Neutrophils % 78.0 Lymphocytes % 12.5 D Monocytes % 9.0 Eosinophils % 0.3 Basophils % 0.2 Sodium 139 Potassium 3.8 Chloride 106 Carbon Dioxide 29 Anion Gap 4 L BUN 9 D Creatinine 0.8 Creat Clearance w eGFR > 60 Random Glucose 86 Calcium 8.4 L Phosphorus 2.3 L Magnesium 2.2 Total Bilirubin 0.7 AST 55 H D ALT 26 D Alkaline Phosphatase 89 Creatine Kinase 1705 H Creatine Kinase Index 0.1 CK-MB (CK-2) 3.108 Troponin I Total Protein 5.3 L Albumin 2.5 L Urine Color Urine Appearance Urine pH Ur Specific [place] Urine Protein Urine Glucose (UA) Urine Ketones Urine Blood Urine Nitrite Urine Bilirubin Urine Urobilinogen Ur Leukocyte Esterase Urine Myoglobin Opiates Screen Methadone Screen Barbiturate Screen Phencyclidine Screen Ur Amphetamines Screen MDMA (Ecstasy) Screen Benzodiazepines Screen Cocaine Screen U Marijuana (THC) Screen HIV 1&2 Antibody Screen HIV P24 Antigen 05/09/17 05/09/17 05/10/17 07:30 22:09 06:20 WBC 6.3 RBC 4.11 Hgb 13.2 Hct 39.0 MCV 95.0 MCH 32.1 MCHC 33.8 RDW 13.4 Plt Count 241 MPV 8.0 Neutrophils % 72.4 Lymphocytes % 15.9 D Monocytes % 10.1 Eosinophils % 1.4 D Basophils % 0.2 Sodium Potassium Chloride Carbon Dioxide Anion Gap BUN Creatinine Creat Clearance w eGFR Random Glucose Calcium Phosphorus Magnesium Total Bilirubin AST ALT Alkaline Phosphatase Creatine Kinase Creatine Kinase Index CK-MB (CK-2) Troponin I Total Protein Albumin Urine Color Straw Urine Appearance Clear Urine pH 7.0 Ur Specific [place] 1.010 Urine Protein Negative Urine Glucose (UA) Negative Urine Ketones Negative Urine Blood Negative Urine Nitrite Negative Urine Bilirubin Negative Urine Urobilinogen Negative Ur Leukocyte Esterase Negative Urine Myoglobin Opiates Screen Methadone Screen Barbiturate Screen Phencyclidine Screen Ur Amphetamines Screen MDMA (Ecstasy) Screen Benzodiazepines Screen Cocaine Screen U Marijuana (THC) Screen HIV 1&2 Antibody Screen Negative HIV P24 Antigen Negative 05/10/17 05/11/17 05/11/17 06:20 05:10 05:10 WBC 6.1 RBC 4.10 Hgb 12.9 Hct 38.8 MCV 94.7 MCH 31.4 MCHC 33.2 RDW 13.5 Plt Count 192 D MPV 9.5 D Neutrophils % 70.6 Lymphocytes % 17.4 Monocytes % 9.8 Eosinophils % 2.0 Basophils % 0.2 Sodium 139 140 Potassium 3.7 4.1 Chloride 105 104 Carbon Dioxide 27 29 Anion Gap 7 L 7 L BUN 9 9 Creatinine 0.7 0.7 Creat Clearance w eGFR > 60 > 60 Random Glucose 86 75 Calcium 8.5 8.5 Phosphorus 2.1 L Magnesium 2.2 Total Bilirubin 0.3 D 0.3 AST 51 H 42 H ALT 27 26 Alkaline Phosphatase 86 79 Creatine Kinase 1441 H Creatine Kinase Index 0.1 CK-MB (CK-2) 2.575 Troponin I Total Protein 5.2 L 5.2 L Albumin 2.5 L 2.5 L Urine Color Urine Appearance Urine pH Ur Specific [place] Urine Protein Urine Glucose (UA) Urine Ketones Urine Blood Urine Nitrite Urine Bilirubin Urine Urobilinogen Ur Leukocyte Esterase Urine Myoglobin Opiates Screen Methadone Screen Barbiturate Screen Phencyclidine Screen Ur Amphetamines Screen MDMA (Ecstasy) Screen Benzodiazepines Screen Cocaine Screen U Marijuana (THC) Screen HIV 1&2 Antibody Screen HIV P24 Antigen 05/11/17 05/12/17 05/12/17 05:10 05:10 06:05 WBC 5.4 RBC 4.11 Hgb 12.8 Hct 39.1 MCV 95.2 MCH 31.2 MCHC 32.8 RDW 13.4 Plt Count 260 D MPV 8.5 D Neutrophils % 62.3 Lymphocytes % 23.0 D Monocytes % 10.9 H Eosinophils % 3.1 Basophils % 0.7 D Sodium Potassium Chloride Carbon Dioxide Anion Gap BUN Creatinine Creat Clearance w eGFR Random Glucose Calcium Phosphorus Magnesium Total Bilirubin AST ALT Alkaline Phosphatase Creatine Kinase 875 H Cancelled Creatine Kinase Index 0.1 CK-MB (CK-2) 1.573 Troponin I Total Protein Albumin Urine Color Urine Appearance Urine pH Ur Specific [place] Urine Protein Urine Glucose (UA) Urine Ketones Urine Blood Urine Nitrite Urine Bilirubin Urine Urobilinogen Ur Leukocyte Esterase Urine Myoglobin Opiates Screen Methadone Screen Barbiturate Screen Phencyclidine Screen Ur Amphetamines Screen MDMA (Ecstasy) Screen Benzodiazepines Screen Cocaine Screen U Marijuana (THC) Screen HIV 1&2 Antibody Screen HIV P24 Antigen 05/12/17 06:05 WBC RBC Hgb Hct MCV MCH MCHC RDW Plt Count MPV Neutrophils % Lymphocytes % Monocytes % Eosinophils % Basophils % Sodium 139 Potassium 4.3 Chloride 101 Carbon Dioxide 30 Anion Gap 8 BUN 10 Creatinine 0.7 Creat Clearance w eGFR > 60 Random Glucose 78 Calcium 8.9 Phosphorus 3.4 D Magnesium 2.1 Total Bilirubin 0.3 AST 35 ALT 26 Alkaline Phosphatase 84 Creatine Kinase 589 H Creatine Kinase Index 0.1 CK-MB (CK-2) < 1.000 Troponin I Total Protein 5.5 L Albumin 2.6 L Urine Color Urine Appearance Urine pH Ur Specific [place] Urine Protein Urine Glucose (UA) Urine Ketones Urine Blood Urine Nitrite Urine Bilirubin Urine Urobilinogen Ur Leukocyte Esterase Urine Myoglobin Opiates Screen Methadone Screen Barbiturate Screen Phencyclidine Screen Ur Amphetamines Screen MDMA (Ecstasy) Screen Benzodiazepines Screen Cocaine Screen U Marijuana (THC) Screen HIV 1&2 Antibody Screen HIV P24 Antigen 05/12/17 16:35 Assessment: 05/12/17 10:51 opioid withdrawal, sinus bradycardia with bifasicular block 05/12/17 16:36 Plan: cont methadone detox, will accelerate detox schedule to reduce qt prolonging medication such as methadone with his bradycardia patient is aware of risks of methadone with bradycardia and prolonged qt, will give valium 10mg scheduled at night for sleep at patient request, increase neurontin for pain. Patient can be transferred to rehab bed when detox is finished at [facility], please call for bed and insurance authorization prior to transfer.
[2017-05-12] MEDS: ASPIRIN COATED 81 MG TABLET.EC PO SCH (12:57)
[2017-05-12] MEDS ORDERED: MAG HYDROX/AL HYDROX/SIMETH 30 ML UNIT-DOSE CUP PO ONE (20:40)
[2017-05-12] MEDS: THIAMINE HCL 100 MG TABLET (FP) PO SCH (21:34)
[2017-05-12] MEDS ORDERED: diazePAM 5 MG TABLET PO SCH (22:00)
[2017-05-13] MEDS ORDERED: METHADONE HCL 10 MG TABLET PO ONE (06:00)
[2017-05-13] MEDS: GABAPENTIN 100 MG CAPSULE (FP) PO SCH (06:28)
[2017-05-13] MEDS: SODIUM CHLORIDE 1,000 ML IV SCH (06:29)
[2017-05-13] MEDS: CYCLOBENZAPRINE HCL 10 MG TABLET (FP) PO SCH (06:29)
[2017-05-13] MEDS: NAPH,MB-DB/K PH,MBDB POWDER PACKET PO SCH (09:28)
[2017-05-13] MEDS: ASPIRIN COATED 81 MG TABLET.EC PO SCH (09:28)
[2017-05-13] MEDS: RANITIDINE HCL 150 MG TABLET (FP) PO SCH (09:28)
[2017-05-13] MEDS: HEPARIN NA (PORCINE) 5,000 UNITS/ML 1ML VIAL SQ SCH (09:28)
[2017-05-13] MEDS: FOLIC ACID 1 MG TABLET (FP) PO SCH (09:28)
--- NOTE | 2017-05-13 10:13 | PN ---
Progress Note (short form) - Note Progress Note: s: no cp sob palps dizzy Current Medications Generic Name Dose Route Start Last Admin Trade Name Freq PRN Reason Stop Dose Admin Acetaminophen 650 mg 05/09/17 04:42 05/12/17 10:05 Tylenol - PO 650 mg Q4H PRN Administration PAIN Aspirin 81 mg 05/12/17 12:45 05/13/17 09:28 Ecotrin - PO 81 mg DAILY ULYSSES Administration Atorvastatin Calcium 10 mg 05/13/17 22:00 Lipitor - PO HS ULYSSES Cyclobenzaprine HCl 5 mg 05/11/17 22:00 05/13/17 06:29 Flexeril - PO 5 mg TID ULYSSES Administration Diazepam 10 mg 05/12/17 22:00 05/12/17 21:34 Valium - PO 10 mg HS ULYSSES Administration Folic Acid 1 mg 05/09/17 13:30 05/13/17 09:28 Folic Acid - PO 1 mg DAILY ULYSSES Administration Gabapentin 200 mg 05/12/17 11:22 05/13/17 06:28 Neurontin - PO 200 mg TID ULYSSES Administration Heparin Sodium (Porcine) 5,000 unit 05/10/17 22:00 05/13/17 09:28 Heparin - SQ 5,000 unit BID ULYSSES Administration Sodium Chloride 1,000 mls @ 150 mls/hr 05/09/17 04:45 05/13/17 06:29 Normal Saline - IV 150 mls/hr ASDIR ULYSSES Administration Potassium Phos/Sodium Phos 1 packet 05/10/17 22:00 05/13/17 09:28 Phos-Nak Packet - PO 1 packet BID ULYSSES Administration Ranitidine HCl 150 mg 05/09/17 10:00 05/13/17 09:28 Zantac - PO 150 mg BID ULYSSES Administration Thiamine HCl 100 mg 05/09/17 22:00 05/12/17 21:34 Vitamin B1 - PO 100 mg HS ULYSSES Administration Zolpidem Tartrate 10 mg 05/11/17 19:08 Ambien - PO HS PRN INSOMNIA Vital Signs Period Temp Pulse Resp BP Sys/Chavez Pulse Ox Last 24 Hr 98.1 F-99.0 F 49-63 18-20 99-151/61-71 nad, thin/cachectic jvd flat, neck supple ctab, nl effort rrr nl s1, s2 no mrg + bs soft nt nd ext with trace edema. no cyanosis, clubbing aaox3 no diaphoresis, jaundice CBC, BMP 05/12/17 06:05 05/12/17 06:05 ECG: SB RBBB, LAD, deep inferolateral TWI Repeat EKG : , SB RBBB LAD pvc's. inferolateral twi with new biphasic twi in anterior leads. qtc difficult to assess in setting of rbbb, but appears wnl. tele: sr in 60s, no sig jessica CXR: no chf Echo: Mild lv dilation. Low normal sys fn. nl rv size/fn. 1+ mr. mild-mod tr. mibi 05/2017: mild apical ischemia, subtle inferior ischemia, mod dec lvef A/P 56 yo occasional smoker with h/o heroin abuse who presents from [facility] with abnormal EKG, noted to have CK elevation > 1000. Ab ekg - Echo with mildly depressed EF. EKG with bradycardia RBBB, inferolateral TWI and dynamic t wave changes with new biphasic twi in anterior leads. - transferred to tele --> significant bradycardia vs. junctional rhythm with frequent ectopy - after stopping valium HR has improved, currently in sr in 60s - stress test with low risk findings and pt has no cardiac sxs so would manage medically. Cont asa, statin. dc tele, cardiac doyle ok for dc
[2017-05-13 10:40] VITALS: BP 124/71; PULSE 52; TEMP 98.6
--- NOTE | 2017-05-13 11:12 | DS ---
Physical Exam: SUBJECTIVE: Patient seen and examined OBJECTIVE: Vital Signs Period Temp Pulse Resp BP Sys/Chavez Pulse Ox Last 24 Hr 98.1 F-99.0 F 49-63 18-20 99-151/61-71 98 PHYSICAL EXAM GENERAL: The patient is awake, alert, and fully oriented, in no acute distress. HEAD: Normal with no signs of trauma. EYES: PERRL, extraocular movements intact, sclera anicteric, conjunctiva clear. ENT: Ears normal, nares patent, oropharynx clear without exudates, moist mucous membranes. NECK: Trachea midline, full range of motion, supple. LUNGS: Breath sounds equal, clear to auscultation bilaterally, no wheezes, no crackles, no accessory muscle use. HEART: Regular rate and rhythm, S1, S2 without murmur, rub or gallop. ABDOMEN: Soft, nontender, nondistended, normoactive bowel sounds, no guarding, no rebound, no hepatosplenomegaly, no masses. EXTREMITIES: 2+ pulses, warm, well-perfused, no edema. NEUROLOGICAL: Cranial nerves II through XII grossly intact. Normal speech, gait not observed. PSYCH: Normal mood, normal affect. SKIN: Warm, dry, normal turgor, no rashes or lesions noted. LABS Laboratory Results - last 24 hr 05/13/17 10:15 Creatine Kinase 479 H HOSPITAL COURSE: Date of Admission:05/09/17 Date of Discharge: 05/13/17 Discharge Summary Reason For Visit: RHABDOMYLOYSIS Current Active Problems Opioid dependence with withdrawal (Acute) Rhabdomyolysis (Acute) Condition: Improved - Instructions Diet, Activity, Other Instructions: Please return to the ED with new, persistent, or worsening symptoms. Please follow-up with providers as indicated. Referrals: Ravin Foster MD [Staff Physician] - 1 Week Wily Kaminski MD [Staff Physician] - (Please follow-up with Dr. Kaminski in 1 week.) Robert Vasquez MD [Staff Physician] - Disposition: HOME - Home Medications Comprehensive Discharge Medication List: Ambulatory Orders Acetaminophen [Tylenol] 650 mg PO PRN PRN 05/08/17 Diphenhydramine [Benadryl Capsule -] 50 mg PO PRN PRN 05/08/17 Guaifenesin Dm [Robitussin Dm -] 10 ml PO PRN PRN 05/08/17 Loperamide HCl [Imodium -] 4 mg PO PRN PRN 05/08/17 Mag Hydrox/Al Hydrox/Simeth [Mylanta Oral Suspension -] 30 ml PO PRN PRN Magnesium Citrate [Citroma -] 300 ml PO PRN PRN 05/08/17 Menthol/Phenol [Cepastat Lozenge -] 1 each MM PRN PRN 05/08/17 Ondansetron [Zofran Odt -] 8 mg SL PRN PRN 05/08/17 P-Ephed 60Mg/Triprolidi 2.5MG [Actifed -] 1 combo PO PRN PRN 05/08/17 Ranitidine HCl [Zantac] 150 mg PO BID 05/08/17 Thiamine HCl [Vitamin B1] 100 mg PO HS 05/08/17 Aspirin Coated [Ecotrin -] 81 mg PO DAILY tab 05/13/17 Atorvastatin Ca [Lipitor] 10 mg PO HS #30 tablet 05/13/17 Diazepam [Valium] 10 mg PO HS PRN #0 tab 05/13/17 Folic Acid - 1 mg PO DAILY #30 tablet 05/13/17 Gabapentin [Neurontin -] 200 mg PO TID #90 tab 05/13/17 - Discharge Referral Referred to [facility] No
--- NOTE | 2017-05-13 11:51 | EKG ---
Test Reason : Blood Pressure : / mmHG Vent. Rate : 070 BPM Atrial Rate : 070 BPM P-R Int : 134 ms QRS Dur : 134 ms QT Int : 396 ms P-R-T Axes : 055 -60 104 degrees QTc Int : 427 ms NORMAL SINUS RHYTHM RIGHT BUNDLE BRANCH BLOCK LEFT ANTERIOR FASCICULAR BLOCK BIFASCICULAR BLOCK T WAVE ABNORMALITY, CONSIDER LATERAL ISCHEMIA ABNORMAL ECG WHEN COMPARED WITH ECG OF 10-MAY-2017 16:59, SIGNIFICANT CHANGES HAVE OCCURRED Confirmed by ARI ZEPEDA MD ([id number]) on 05/13/2017 11:51:38 AM Referred By: SABRINA CASTILLO,SGROE Confirmed By:ARI ZEPEDA MD
[2017-05-13] MEDS ORDERED: ATORVASTATIN CA 10 MG TABLET (FP) PO SCH (22:00)
--- NOTE | 2017-05-15 12:51 | EKG ---
Test Reason : Blood Pressure : / mmHG Vent. Rate : 057 BPM Atrial Rate : 045 BPM P-R Int : 128 ms QRS Dur : 134 ms QT Int : 516 ms P-R-T Axes : 071 -59 266 degrees QTc Int : 502 ms SINUS BRADYCARDIA WITH OCCASIONAL PREMATURE VENTRICULAR COMPLEXES RIGHT BUNDLE BRANCH BLOCK LEFT ANTERIOR FASCICULAR BLOCK BIFASCICULAR BLOCK T WAVE ABNORMALITY, CONSIDER INFEROLATERAL ISCHEMIA ABNORMAL ECG WHEN COMPARED WITH ECG OF 10-MAY-2017 16:57, SINUS RHYTHM HAS REPLACED ECTOPIC ATRIAL RHYTHM (RBBB AND LEFT ANTERIOR FASCICULAR BLOCK) HAS REPLACED NON-SPECIFIC INTRA-VENTRICULAR CONDUCTION BLOCK CRITERIA FOR LATERAL INFARCT ARE NO LONGER PRESENT CRITERIA FOR INFERIOR INFARCT ARE NO LONGER PRESENT Confirmed by RASHID SANTIAGO MD ([id number]) on 05/15/2017 12:51:30 PM Referred By: Confirmed By:RASHID SANTIAGO MD
== END 2017-05-13 13:00 | disposition home or self-care (01) | DRG 201 ==
LOC: JER 16:08 → JERBED 19:34 → J6S 21:02 → OBSVTOIN 05-09 13:17 → J4W 05-10 20:19
PROVIDERS: ADMIT Internal Medicine; ATTEND Registered Nurse
PROC: HZ2ZZZZ Detoxification Services for Substance Abuse Treatment (ICD-10-PCS; principal; 2017-05-10)
PROC: HZ81ZZZ Medication Management for Substance Abuse Treatment, Methadone Maintenance (ICD-10-PCS; 2017-05-10)
DX: R00.1 Bradycardia, unspecified (principal); M62.82 Rhabdomyolysis; F11.23 Opioid dependence with withdrawal; K21.9 Gastro-esophageal reflux disease without esophagitis; I45.2 Bifascicular block; I95.1 Orthostatic hypotension; F17.210 Nicotine dependence, cigarettes, uncomplicated; R64 Cachexia; Z68.1 Body mass index [BMI] 19.9 or less, adult; F32.9 Major depressive disorder, single episode, unspecified; I36.1 Nonrheumatic tricuspid (valve) insufficiency; I45.81 Long QT syndrome
CPT/HCPCS: 36415; 71020-TC; 78452-TC; 80053; 80307; 81003; 82550; 82553; 83735; 83874; 84100; 84484; 85025; 87389; 93005; 93010; 93017; 93306-TC; 97116-GP; 97161-GP; 99284-25; A9502; G0378; J1644